=== PATIENT | female | born 2000 ===

== ENCOUNTER 2020-08-22 17:25 | Emergency (ER) | payer OTHER, SELFPAY ==
--- NOTE | 2020-08-22 18:33 | ED.FEMALEGU ---
HPI - Female Genitourinary General Chief complaint: Vaginal Bleeding Stated complaint: vaginal bleeding Time Seen by Provider: 08/22/20 18:33 Source: patient Mode of arrival: ambulatory Limitations: no limitations History of Present Illness HPI Narrative: 20-year-old female presents with heavy vaginal bleeding, states that she has been bleeding irregularly since April. She was treated with control which worked for several days and then bleeding resumed. She has been going through tampons and pads approximately 12 per day. she does feel weak, tired and had a syncopal episode earlier today. She has not been seen by OBGYN, she has been treated by [facility]. this bleeding is accompanied with lower abdominal pain and cramping. She does not report chest pain or pressure, shortness breath, abdominal distention, dysuria, hematuria, fevers, chills, and edema. MD elicited complaint: vaginal bleeding and pelvic pain Onset (ago): week(s) Location of symptoms: suprapubic Severity: severe Severity scale (1-10): 8 Quality of pain: cramping Consistency: constant Vaginal bleeding: heavy, dark red, clots, # pads per hour (1) and # pads per day ( 12 regular tampons, 12 pads saturated) Relieving factors: none Associated symptoms: abdominal pain, syncope and nausea Treatment prior to arrival: none Sexual activity: No Patient : No Related Data : 0 Para: 0 Allergies Allergy/AdvReac Type Severity Reaction Status Date / Time No Known Allergies Allergy Unverified 07/18/20 17:59 Review of Systems Review of Systems: Constitutional: No Weight loss, No Fever, No Chills, No Night Sweats, No Fatigue, No Malaise ENT/Mouth: No Hearing loss, No Ear Pain, No Nasal Congestion, No Sinus Pain, No Hoarseness, No sore throat, No Rhinorrhea, No Swallowing Difficulty Eyes: No Eye Pain, No Swelling, No Redness, No Foreign Body, No Discharge, No Vision Changes Cardiovascular: No Chest Pain, No SOB, No Dyspnea on Exertion, No Orthopnea, No Edema, No Palpitations Respiratory: No Cough, No Sputum, No Wheezing, No Smoke Exposure, No Dyspnea Gastrointestinal: No Nausea, No Vomiting, No Diarrhea, No Constipation, No abdominal Pain, No Hematochezia, No Melena Genitourinary: positive irregular and excessive vaginal bleeding, No Dysuria, No Urinary Frequency, No Hematuria, No Urinary Incontinence, No Urgency, No Flank Pain, No Urinary Flow Changes, No Hesitancy Musculoskeletal: No joint pain, No Myalgias, No Joint Swelling Skin: No Skin Lesions, No rash Neuro: positive syncopal episode earlier today, No Weakness, No Numbness, No Paresthesias, No Dizziness, No Headache Psych: No Anxiety/Panic, No Depression, No SI/HI/AH/VH, No Social Issues Heme/Lymph: No Bruising, No Bleeding,No Lymphadenopathy Endocrine: No Polyuria, No Polydipsia, No Temperature Intolerance Yes all other systems are reviewed and are negative [facility] Past Medical History Medical History No known health problems : 0 Para: 0 Social History Social History Alcohol intake: never Smoking Status: Never smoker Use of substances other than those prescribed or required for medical reasons: No Advance Directives: No Advance Directives Information Provided: No Physical Exam Vital Signs: Vital Signs: Vital Signs Temp Pulse Resp BP Pulse Ox 08/22/20 20:00 98.2 F 82 16 131/82 99 08/22/20 18:40 98.1 F 98 16 139/79 98 08/22/20 18:35 98.1 F 98 16 139/79 98 Body Mass Index 43.2 Appearance: Alert. Oriented X3. No acute distress. Head: Normal external exam. Normocephalic. Atraumatic. No Perdomo signs noted. No raccoon eyes noted Eyes: PERRLA. EOMI. Conjunctiva and sclera normal. Eyelids normal. ENT: TM's Normal. Pharynx normal. Uvula midline. Moist mucous membranes. No trismus noted. No drooling noted. No muffled voice noted. Neck: Normal inspection. Neck supple. No adenopathy. Thyroid Normal. No meningeal signs. No neck mass noted. CVS: tachycardic with normal rhythm. Heart sound normal. No murmurs noted. Pulses equal to all extremities. Respiratory: No respiratory distress. Painless inspiration. Breath sounds normal. No wheezes/rales/rhonchi noted. Chest nontender. No accessory muscle usage noted or decreased air movement noted. Abdomen: Soft and nontender. Bowel sounds normal in all 4 quadrants. No distention noted. No organomegaly noted. No visible injury noted. Back: No CVA tenderness. Full range of motion noted. Skin: Skin warm and dry. Normal skin color. Normal skin turgor. No rashes/lesions/lacerations noted. Extremities: No lower extremity edema. Extremities exhibit normal range of motion. Extremities nontender. Neuro: cranial nerves 2-12 intact, no focal neural deficits, strength 5/5 to all extremities, No motor deficit. No sensory deficit. Reflexes normal. MDM - Female Genitourinary MDM Narrative Medical decision making narrative: uterine fibroid Differential Diagnosis Differential diagnosis: Likely urinary tract infection, cervicitis, ovarian cyst, ruptured ovarian cyst and dysmenorrhea Medical Records Attestation: I reviewed the patient's medical records. Lab Data Attestation: I reviewed the patient's lab results. Result diagrams: 08/22/20 18:57 08/22/20 18:57 Labs: Lab Results 08/22/20 08/22/20 08/22/20 Range/Units 18:57 18:57 18:57 WBC 9.7 (4.8-10.8) X10*3/uL RBC 5.06 (4.20-5.50) X10*6/uL Hgb 13.3 (12.0-16.0) g/dl Hct 41.6 (37-47) % MCV 82.2 (80-98) fL MCH 26.3 L (27.0-33.0) pg MCHC 32.0 (31.0-35.0) g/dl RDW 13.5 (11.0-16.0) % Plt Count 447 H (160-400) X10*3/uL MPV 9.1 L (9.4-12.3) fL Immature Gran % (Auto) 0.3 (0.0-0.4) % Neut % (Auto) 62.2 (45-73) % Lymph % (Auto) 29.8 (20-40) % [place] % (Auto) 6.2 (2-11) % Eos % (Auto) 1.0 (0-4) % Baso % (Auto) 0.5 (0-2) % Lymph # (Auto) 2.9 (1.2-4.9) X10*3/uL [place] # (Auto) 0.6 (0.1-1.2) X10*3/uL Eos # (Auto) 0.1 (0.0-0.4) X10*3/uL Baso # (Auto) 0.1 (0.0-0.2) X10*3/uL Abs Immat Gran (auto) 0.03 (0.00-0.03) X10*3/uL Absolute Neuts (auto) 6.1 (2.0-8.3) X10*3/uL Absolute Nucleated RBC 0.000 (0.0-0.012) X10*3/uL Nucleated RBC % (auto) 0.0 (0.0-0.2) /100WBC PT 13.1 H (10.8-13.0) SEC INR 1.1 (0.9-1.1) APTT 39.9 H (24.1-38.0) SEC Sodium 137 (135-145) mmol/L Potassium 3.8 (3.3-5.1) mmol/l Chloride 106 (96-108) mmol/L Carbon Dioxide 22 (22-29) mmol/L Anion Gap 13 (12-20) BUN 8 L (9-16) mg/dL Creatinine 0.64 (0.5-1.4) mg/dL Estim Creat Clear Calc 178.6 Estimated GFR > 60 Random Glucose 90 (60-115) mg/dL Calcium 9.0 (8.4-10.2) mg/dL Troponin I High Sens (<3.5-17.0) ng/L Urine Color Urine Appearance Urine pH (5.0-8.0) Ur Specific [place] (1.005-1.025) Urine Protein (NEG-TRACE) MG/DL Urine Glucose (UA) (NEG) MG/DL Urine Ketones (NEG) MG/DL Urine Blood (NEG) Urine Nitrite (NEG) Ur Leukocyte Esterase (NEG) Urine RBC (0) /HPF Urine WBC (0-4) /HPF Ur Squamous Epith Cells /LPF Urine Bacteria /LPF Urine Mucus /LPF Urine Test (NEGATIVE) Blood Type Antibody Screen 08/22/20 08/22/20 08/22/20 Range/Units 18:57 18:57 19:15 WBC (4.8-10.8) X10*3/uL RBC (4.20-5.50) X10*6/uL Hgb (12.0-16.0) g/dl Hct (37-47) % MCV (80-98) fL MCH (27.0-33.0) pg MCHC (31.0-35.0) g/dl RDW (11.0-16.0) % Plt Count (160-400) X10*3/uL MPV (9.4-12.3) fL Immature Gran % (Auto) (0.0-0.4) % Neut % (Auto) (45-73) % Lymph % (Auto) (20-40) % [place] % (Auto) (2-11) % Eos % (Auto) (0-4) % Baso % (Auto) (0-2) % Lymph # (Auto) (1.2-4.9) X10*3/uL [place] # (Auto) (0.1-1.2) X10*3/uL Eos # (Auto) (0.0-0.4) X10*3/uL Baso # (Auto) (0.0-0.2) X10*3/uL Abs Immat Gran (auto) (0.00-0.03) X10*3/uL Absolute Neuts (auto) (2.0-8.3) X10*3/uL Absolute Nucleated RBC (0.0-0.012) X10*3/uL Nucleated RBC % (auto) (0.0-0.2) /100WBC PT (10.8-13.0) SEC INR (0.9-1.1) APTT (24.1-38.0) SEC Sodium (135-145) mmol/L Potassium (3.3-5.1) mmol/l Chloride (96-108) mmol/L Carbon Dioxide (22-29) mmol/L Anion Gap (12-20) BUN (9-16) mg/dL Creatinine (0.5-1.4) mg/dL Estim Creat Clear Calc Estimated GFR Random Glucose (60-115) mg/dL Calcium (8.4-10.2) mg/dL Troponin I High Sens < 3.5 (<3.5-17.0) ng/L Urine Color YELLOW Urine Appearance CLEAR Urine pH 6.0 (5.0-8.0) Ur Specific [place] >= 1.030 H (1.005-1.025) Urine Protein NEG (NEG-TRACE) MG/DL Urine Glucose (UA) NEG (NEG) MG/DL Urine Ketones NEG (NEG) MG/DL Urine Blood 1+ H (NEG) Urine Nitrite NEG (NEG) Ur Leukocyte Esterase NEG (NEG) Urine RBC 1-4 (0) /HPF Urine WBC 1-4 (0-4) /HPF Ur Squamous Epith Cells 1+ /LPF Urine Bacteria 1+ /LPF Urine Mucus 2+ /LPF Urine Test NEGATIVE (NEGATIVE) Blood Type O Positive Antibody Screen NEGATIVE Imaging Data Pelvic ultrasound: Attestation: I personally reviewed and interpreted this imaging study as follows: Radiologist's impression: FINDINGS: The uterus is of normal size and echogenicity measuring 8.0 x 3.0 x 4.2 cm. A regular homogeneous endometrium is identified measuring 1.3 cm. A normal right ovary is identified. It measures 2.4 x 2.0 x 2.4 cm for a volume of 6.0 cc. The left ovary is not identified. Normal arterial and venous blood flow is present bilaterally. There is no pelvic free fluid. US/US pelvic complete IMPRESSION: Left ovary not identified; otherwise, unremarkable pelvic ultrasound. ECG Data Attestation: I personally reviewed and interpreted this ECG as follows: ECG interpretation date: 08/22/20 ECG interpretation time: 19:04 Prior ECG tracings: not available for review Interpretation: Vent. Rate : 095 BPM Atrial Rate : 095 BPM P-R Int : 168 ms QRS Dur : 076 ms QT Int : 350 ms P-R-T Axes : 067 043 028 degrees QTc Int : 439 ms Normal sinus rhythm Normal ECG No previous ECGs available Discharge Plan Discharge Clinical Impression: Vaginal bleeding Patient Disposition: Home, Self-Care Instructions: Dysfunctional Uterine Bleeding (ED) Additional Instructions: you were evaluated for menorrhagia, which is abnormal uterine bleeding. Please follow-up with OBGYN, we referred you to Dr. Yang. please call and Ask for an appointment for evaluation. Your pelvic ultrasound was normal, your lab values were within normal limits and not requiring emergent intervention. Thank you for choosing this emergency department for evaluation. Please follow-up with primary care physician as needed. Return to the emergency department for any new, concerning, or worsening symptoms. Referrals: Buddy Yang MD [Physician] - 2 days ( abnormal vaginal bleeding) Interventions: ED Discharge Assessment Last Done: 08/22/20 20:50 Discharge Date/Time: 08/22/20 20:51
[2020-08-22 18:35] VITALS: BP 139/79; PULSE 98; RESP 16; TEMP 36.7; O2SAT 98; BMI 43.2
[2020-08-22 18:40] VITALS: BP 139/79; PULSE 98; RESP 16; TEMP 36.7; O2SAT 98
--- NOTE | 2020-08-22 18:41 | ECG_ITS ---
Test Reason : DIZZY Blood Pressure : / mmHG Vent. Rate : 095 BPM Atrial Rate : 095 BPM P-R Int : 168 ms QRS Dur : 076 ms QT Int : 350 ms P-R-T Axes : 067 043 028 degrees QTc Int : 439 ms Normal sinus rhythm Normal ECG No previous ECGs available Referred By: Edita Villareal Electronically Signed By:ROSANGELA KUNZ MD
--- NOTE | 2020-08-22 18:44 | US_ITS ---
EXAMINATIONS: ULTRASOUND PELVIC, COMPLETE AND DOPPLER INTERROGATION CLINICAL INFORMATION: Abnormal vaginal bleeding. COMPARISON: None. TECHNIQUE: Transabdominal and transvaginal imaging was performed. Transvaginal imaging was performed for further evaluation of the endometrium and adnexa. Doppler interrogation spectral analysis was performed. FINDINGS: The uterus is of normal size and echogenicity measuring 8.0 x 3.0 x 4.2 cm. A regular homogeneous endometrium is identified measuring 1.3 cm. A normal right ovary is identified. It measures 2.4 x 2.0 x 2.4 cm for a volume of 6.0 cc. The left ovary is not identified. Normal arterial and venous blood flow is present bilaterally. There is no pelvic free fluid. US/US pelvic complete IMPRESSION: Left ovary not identified; otherwise, unremarkable pelvic ultrasound.
--- NOTE | 2020-08-22 18:44 | US_ITS ---
EXAMINATIONS: ULTRASOUND PELVIC, COMPLETE AND DOPPLER INTERROGATION CLINICAL INFORMATION: Abnormal vaginal bleeding. COMPARISON: None. TECHNIQUE: Transabdominal and transvaginal imaging was performed. Transvaginal imaging was performed for further evaluation of the endometrium and adnexa. Doppler interrogation spectral analysis was performed. FINDINGS: The uterus is of normal size and echogenicity measuring 8.0 x 3.0 x 4.2 cm. A regular homogeneous endometrium is identified measuring 1.3 cm. A normal right ovary is identified. It measures 2.4 x 2.0 x 2.4 cm for a volume of 6.0 cc. The left ovary is not identified. Normal arterial and venous blood flow is present bilaterally. There is no pelvic free fluid. US/US transvaginal IMPRESSION: Left ovary not identified; otherwise, unremarkable pelvic ultrasound.
[2020-08-22 19:04] LABS: Basophils Absolute Auto 0.1 X10*3/uL (0.0-0.2); Basophils Percent Auto 0.5 % (0-2); Eosinophils Absolute Auto 0.1 X10*3/uL (0.0-0.4); Hematocrit 41.6 % (37-47); Hemoglobin 13.3 g/dl (12.0-16.0); Imm Gran Abs Auto 0.03 X10*3/uL (0.00-0.03); Imm Gran Pct Auto 0.3 % (0.0-0.4); Lymphocytes Absolute Auto 2.9 X10*3/uL (1.2-4.9); Lymphocytes Percent Auto 29.8 % (20-40); MANUAL DIFF FLAG NO; Mean Corpuscular Hemoglobin 26.3 pg (27.0-33.0); Mean Corpuscular Volume 82.2 fL (80-98); Mean Platelet Volume 9.1 fL (9.4-12.3); Monocytes Absolute Auto 0.6 X10*3/uL (0.1-1.2); Monocytes Percent Auto 6.2 % (2-11); Neutrophils Absolute Auto 6.1 X10*3/uL (2.0-8.3); Neutrophils Percent Auto 62.2 % (45-73); Platelet Count 447 X10*3/uL (160-400); Red Blood Count 5.06 X10*6/uL (4.20-5.50); Red Cell Distribution Width 13.5 % (11.0-16.0); White Blood Count 9.7 X10*3/uL (4.8-10.8)
[2020-08-22 19:11] LABS: Glucose Urine UA NEG (NEG); Leukocyte Esterase Urine NEG (NEG); Nitrite Urine NEG (NEG); Specific Gravity - Urine >= 1.030 (1.005-1.025); Urine Blood 1+ (NEG); Urine Ketones NEG (NEG); Urine Protein NEG (NEG-TRACE)
[2020-08-22 19:13] LABS: Appearance Urine CLEAR; Color Urine YELLOW
[2020-08-22 19:14] LABS: INTERNATIONAL NORM RATIO 1.1 (0.9-1.1); Prothrombin Time 13.1 SEC (10.8-13.0)
[2020-08-22 19:17] LABS: Partial Thromboplastin Time 39.9 SEC (24.1-38.0); UPreg QC Valid YES; Urine Pregnancy NEGATIVE (NEGATIVE)
[2020-08-22 19:21] LABS: Bacteria Urine 1+ /LPF; Squamous Epithelial Cell Urine 1+ /LPF
[2020-08-22 19:22] LABS: Anion Gap 13 (12-20); Blood Urea Nitrogen 8 mg/dL (9-16); Carbon Dioxide 22 mmol/L (22-29); Chloride 106 mmol/L (96-108); Creatinine Clr Calc Pharmacy 178.6; Estimated Glomerular Filt Rate > 60; Glucose Random 90 mg/dL (60-115); Mucus Urine 2+ /LPF; Potassium 3.8 mmol/l (3.3-5.1); Sodium 137 mmol/L (135-145)
[2020-08-22 19:27] LABS: Troponin-I High Sensitivity < 3.5 ng/L (<3.5-17.0)
[2020-08-22 20:00] VITALS: BP 131/82; PULSE 82; RESP 16; TEMP 36.8; O2SAT 99
[2020-08-22] MEDS: Ketorolac Tromethamine 30 MG/ML VIAL IV (20:05)
[2020-08-22] MEDS: 0.9 % Sodium Chloride 1,000 ML 999 ML IVCONT (20:05)
[2020-08-22] MEDS: ondansetron HCL 4 MG/2 ML VIAL IVPUSH (20:06)
== END 2020-08-22 20:51 | disposition home or self-care (01) ==
PROVIDERS: Nurse Practitioner Family; Emergency Provider Emergency Medicine
DX: N93.9 Abnormal uterine and vaginal bleeding, unspecified (principal)
CPT/HCPCS: 36415; 76830; 76856; 80048; 81001; 81025; 84484; 85025; 85610; 85730; 86850; 86900; 86901; 93005; 99284; J1885; J2405

== ENCOUNTER 2020-11-27 21:09 | Emergency (ER) | payer OTHER, SELFPAY ==
[2020-11-27 22:54] VITALS: BP 133/89; PULSE 88; RESP 18; TEMP 36.8; O2SAT 98; BMI 43.7
--- NOTE | 2020-11-27 23:18 | ED_ITS ---
HPI - Female Genitourinary General Chief complaint: Urogenital-Female Stated complaint: right side pain Time Seen by Provider: 11/27/20 22:43 Source: patient Mode of arrival: ambulatory Limitations: no limitations History of Present Illness HPI Narrative: Patient comes emergency room complaining of right lower quadrant pain. Patient states she has for lower back pain as well. Patient has no history of kidney stones. Patient also complaining of burning with urination. Patient denies fever chills. Patient has been evaluated before for vaginal bleeding and vaginal discomfort, patient states she went to see her OBGYN after her visit in the ER on August 2020, patient states that she was told that everything is normal Related Data Previous Rx's Medication Instructions Recorded ketorolac 10 mg PO TID PRN 5 Days #12 tab 11/28/20 ondansetron HCl [Zofran] 4 mg PO Q8H PRN #10 tab 11/28/20 prednisone 20 mg PO DAILY #3 tab 11/28/20 tamsulosin 0.4 mg PO DAILY #4 cap 11/28/20 Allergies Allergy/AdvReac Type Severity Reaction Status Date / Time No Known Allergies Allergy Unverified 07/18/20 17:59 Review of Systems Review of Systems: Constitutional : No Weight loss, No Fever, No Chills, No Night Sweats, No Fatigue, No Malaise ENT/Mouth : No Hearing loss, No Ear Pain, No Nasal Congestion, No Sinus Pain, No Hoarseness, No sore throat, No Rhinorrhea, No Swallowing Difficulty Eyes: No Eye Pain, No Swelling, No Redness, No Foreign Body, No Discharge, No Vision Changes Cardiovascular : No Chest Pain, No SOB, No Dyspnea on Exertion, No Orthopnea, No Edema, No Palpitations Respiratory : No Cough, No Sputum, No Wheezing, No Smoke Exposure, No Dyspnea Gastrointestinal : No Nausea, No Vomiting, No Diarrhea, No Constipation, of right lower quadrant pain, No Hematochezia, No Melena Genitourinary : no irregular bleeding, No Dysuria, No Urinary Frequency, No Hematuria, No Urinary Incontinence, No Urgency, No Flank Pain, No Urinary Flow Changes, No Hesitancy Musculoskeletal : No joint pain, No Myalgias, No Joint Swelling, complaining of right sided back pain lower side, no CVA tenderness Skin : No Skin Lesions, No rash Neuro : No Weakness, No Numbness, No Paresthesias, No Loss of Consciousness, No Dizziness, No Headache Psych : No Anxiety/Panic, No Depression, No SI/HI/AH/VH, No Social Issues, Heme/Lymph: No Bruising, No Bleeding,No Lymphadenopathy Endocrine : No Polyuria, No Polydipsia, No Temperature Intolerance [facility] Past Medical History Medical History No known health problems Social History Social History Alcohol intake: never Smoking Status: Never smoker Advance Directives: No Physical Exam Vital Signs: Vital Signs: Last Vital Signs Temp 98.3 F 11/27/20 22:54 Pulse 88 11/27/20 22:54 Resp 18 11/27/20 22:54 BP 133/89 11/27/20 22:54 Pulse Ox 98 11/27/20 22:54 Body Mass Index 43.7 Appearance: Alert. Oriented X3. No acute distress. Playing on her phone Eyes: Pupils equal, round and reactive to light. ENT: Pharynx normal. Neck: Normal inspection. Neck supple. No lymph nodes noted. No crepitus CVS: Normal heart rate and rhythm. Pulses normal. Normal S1 and S2 Respiratory: No respiratory distress. Breath sounds normal. No Wheezing. No rales Abdomen: Soft , mild right tenderness, No rigidity. No distention. good BS x4 Skin: Skin warm and dry. Normal skin color. Normal skin turgor. Extremities: No lower extremity edema. No lower extremity edema. No Lacerations. No Rash Neuro: Oriented X 3. No motor deficit. No sensory deficit. Moving all extermities. No slurred speech. Course Course Course Narrative: I discussed the CT scan and labs with the patient, she has a 2 mm stone at the right UVJ. Is very likely that she will pass the stone. Patient was given a 1st dose of Toradol, prednisone, tamsulosin. MDM - Female Genitourinary Lab Data Result diagrams: 11/27/20 23:48 11/27/20 23:48 Labs: Lab Results 11/27/20 11/27/20 11/27/20 Range/Units 23:48 23:48 23:48 WBC 9.4 (4.8-10.8) X10*3/uL RBC 4.67 (4.20-5.50) X10*6/uL Hgb 11.9 L (12.0-16.0) g/dl Hct 37.6 (37-47) % MCV 80.5 (80-98) fL MCH 25.5 L (27.0-33.0) pg MCHC 31.6 (31.0-35.0) g/dl RDW 13.4 (11.0-16.0) % Plt Count 388 (160-400) X10*3/uL MPV 9.1 L (9.4-12.3) fL Immature Gran % (Auto) 0.2 (0.0-0.4) % Neut % (Auto) 68.6 (45-73) % Lymph % (Auto) 23.2 (20-40) % [place] % (Auto) 7.4 (2-11) % Eos % (Auto) 0.3 (0-4) % Baso % (Auto) 0.3 (0-2) % Lymph # (Auto) 2.2 (1.2-4.9) X10*3/uL [place] # (Auto) 0.7 (0.1-1.2) X10*3/uL Eos # (Auto) 0.0 (0.0-0.4) X10*3/uL Baso # (Auto) 0.0 (0.0-0.2) X10*3/uL Abs Immat Gran (auto) 0.02 (0.00-0.03) X10*3/uL Absolute Neuts (auto) 6.4 (2.0-8.3) X10*3/uL Absolute Nucleated RBC 0.000 (0.0-0.012) X10*3/uL Nucleated RBC % (auto) 0.0 (0.0-0.2) /100WBC Sodium 137 (135-145) mmol/L Potassium 3.8 (3.3-5.1) mmol/l Chloride 107 (96-108) mmol/L Carbon Dioxide 23 (22-29) mmol/L Anion Gap 11 L (12-20) BUN 12 (9-16) mg/dL Creatinine 0.63 (0.5-1.4) mg/dL Estim Creat Clear Calc 182.7 Estimated GFR > 60 Random Glucose 98 (60-115) mg/dL Calcium 8.9 (8.4-10.2) mg/dL Urine Color YELLOW Urine Appearance CLEAR Urine pH 6.0 (5.0-8.0) Ur Specific [place] 1.025 (1.005-1.025) Urine Protein NEG (NEG-TRACE) MG/DL Urine Glucose (UA) NEG (NEG) MG/DL Urine Ketones NEG (NEG) MG/DL Urine Blood 1+ H (NEG) Urine Nitrite NEG (NEG) Ur Leukocyte Esterase NEG (NEG) Urine RBC 1-4 (0) /HPF Urine WBC 1-4 (0-4) /HPF Ur Squamous Epith Cells 1+ /LPF Urine Bacteria 1+ /LPF Urine Mucus 2+ /LPF Urine Test NEGATIVE (NEGATIVE) Imaging Data CT scan - abdomen: Radiologist's impression: FINDINGS: LUNG BASES: The visualized lung bases are unremarkable. LIVER, GALLBLADDER, AND BILIARY TREE: The liver is normal in size, shape, and attenuation. No focal hepatic lesion or biliary ductal dilatation is present. The gallbladder is unremarkable with no evidence of radiopaque gallstones, gallbladder wall thickening, or obvious pericholecystic inflammatory changes. PANCREAS: Unremarkable. SPLEEN: Unremarkable. ADRENAL GLANDS: Unremarkable. KIDNEYS AND URETERS: There is a 2 mm calculus at the right ureterovesicular junction without significant hydronephrosis. No left hydronephrosis. Bilateral nephrograms appear symmetric. Tiny renal cysts suspected bilaterally. BLADDER: Unremarkable. GASTROINTESTINAL TRACT: The small and large bowel are unremarkable. The appendix is unremarkable. No free fluid or free air is seen. ABDOMINAL WALL: No significant hernia is appreciated. LYMPH NODES: Normal. VASCULAR: Unremarkable. PELVIC VISCERA: Unremarkable. OSSEOUS STRUCTURES: Unremarkable. CT/CT abdomen pelvis w con IMPRESSION: Right ureterovesicular junction calculus measuring 2 mm without significant hydronephrosis. Discharge Plan Discharge Clinical Impression: Ureterolithiasis Patient Disposition: Home, Self-Care Instructions: Kidney Stones (ED) Additional Instructions: Please follow-up with your primary care physician tomorrow. If you have any worsening or new symptoms, please return to the emergency room or call 911 Prescriptions: New ketorolac 10 mg tablet 10 mg PO TID PRN (Reason: pain) 5 Days Qty: 12 RF: 0 prednisone 20 mg tablet 20 mg PO DAILY Qty: 3 RF: 0 tamsulosin 0.4 mg capsule 0.4 mg PO DAILY Qty: 4 RF: 0 ondansetron HCl [Zofran] 4 mg tablet 4 mg PO Q8H PRN (Reason: nausea and vomiting) Qty: 10 RF: 0 Referrals: Barber Mccallum III, MD [Physician] - 2 days
[2020-11-27 23:59] LABS: MANUAL DIFF FLAG NO
--- NOTE | 2020-11-28 | CT_ITS ---
EXAMINATION: CT ABDOMEN AND PELVIS WITH CONTRAST CLINICAL INFORMATION: Right lower quadrant pain COMPARISON: 02/27/2020 TECHNIQUE: Multidetector volumetric images were obtained from the superior aspect of the liver through the pubic symphysis following administration 85 mL of Omnipaque 350 intravenous contrast. Sagittal and coronal reformatted images were obtained on the technologist's workstation. Oral contrast: No This CT examination was performed using dose optimization techniques as appropriate, variously including the following: *Automated exposure control *Adjustment of mA and/or kV according to patient size (this includes techniques or standardized protocols for targeted exams where dose is matched to indication/reason for exam; i.e. extremities or head) *Use of iterative reconstruction technique DLP: 966 mGy-cm FINDINGS: LUNG BASES: The visualized lung bases are unremarkable. LIVER, GALLBLADDER, AND BILIARY TREE: The liver is normal in size, shape, and attenuation. No focal hepatic lesion or biliary ductal dilatation is present. The gallbladder is unremarkable with no evidence of radiopaque gallstones, gallbladder wall thickening, or obvious pericholecystic inflammatory changes. PANCREAS: Unremarkable. SPLEEN: Unremarkable. ADRENAL GLANDS: Unremarkable. KIDNEYS AND URETERS: There is a 2 mm calculus at the right ureterovesicular junction without significant hydronephrosis. No left hydronephrosis. Bilateral nephrograms appear symmetric. Tiny renal cysts suspected bilaterally. BLADDER: Unremarkable. GASTROINTESTINAL TRACT: The small and large bowel are unremarkable. The appendix is unremarkable. No free fluid or free air is seen. ABDOMINAL WALL: No significant hernia is appreciated. LYMPH NODES: Normal. VASCULAR: Unremarkable. PELVIC VISCERA: Unremarkable. OSSEOUS STRUCTURES: Unremarkable. CT/CT abdomen pelvis w con IMPRESSION: Right ureterovesicular junction calculus measuring 2 mm without significant hydronephrosis.
[2020-11-28 00:01] LABS: Basophils Percent Auto 0.3 % (0-2); Eosinophils Percent Auto 0.3 % (0-4); Hematocrit 37.6 % (37-47); Hemoglobin 11.9 g/dl (12.0-16.0); Imm Gran Abs Auto 0.02 X10*3/uL (0.00-0.03); Imm Gran Pct Auto 0.2 % (0.0-0.4); Lymphocytes Absolute Auto 2.2 X10*3/uL (1.2-4.9); Lymphocytes Percent Auto 23.2 % (20-40); Mean Corpuscular HGB Conc 31.6 g/dl (31.0-35.0); Mean Corpuscular Hemoglobin 25.5 pg (27.0-33.0); Mean Corpuscular Volume 80.5 fL (80-98); Mean Platelet Volume 9.1 fL (9.4-12.3); Monocytes Absolute Auto 0.7 X10*3/uL (0.1-1.2); Monocytes Percent Auto 7.4 % (2-11); Neutrophils Absolute Auto 6.4 X10*3/uL (2.0-8.3); Neutrophils Percent Auto 68.6 % (45-73); Platelet Count 388 X10*3/uL (160-400); Red Blood Count 4.67 X10*6/uL (4.20-5.50); Red Cell Distribution Width 13.4 % (11.0-16.0); White Blood Count 9.4 X10*3/uL (4.8-10.8)
[2020-11-28 00:09] LABS: Glucose Urine UA NEG (NEG); Leukocyte Esterase Urine NEG (NEG); Nitrite Urine NEG (NEG); Specific Gravity - Urine 1.025 (1.005-1.025); Urine Blood 1+ (NEG); Urine Ketones NEG (NEG); Urine Protein NEG (NEG-TRACE)
[2020-11-28] MEDS: Ketorolac Tromethamine 30 MG/ML VIAL IVPUSH (00:10)
[2020-11-28 00:12] LABS: Appearance Urine CLEAR; Color Urine YELLOW; UPreg QC Valid YES; Urine Pregnancy NEGATIVE (NEGATIVE)
[2020-11-28 00:21] LABS: Bacteria Urine 1+ /LPF; Mucus Urine 2+ /LPF; Squamous Epithelial Cell Urine 1+ /LPF
[2020-11-28 00:22] LABS: Anion Gap 11 (12-20); Blood Urea Nitrogen 12 mg/dL (9-16); Calcium 8.9 mg/dL (8.4-10.2); Carbon Dioxide 23 mmol/L (22-29); Chloride 107 mmol/L (96-108); Creatinine Clr Calc Pharmacy 182.7; Estimated Glomerular Filt Rate > 60; Glucose Random 98 mg/dL (60-115); Potassium 3.8 mmol/l (3.3-5.1); Sodium 137 mmol/L (135-145)
[2020-11-28] MEDS: iohexoL 350 MG/ML 100 ML INFUS..BTL 85 ML IV (01:20)
[2020-11-28] MEDS: predniSONE 20 MG TABLET PO (02:27)
[2020-11-28] MEDS: Tamsulosin HCL 0.4 MG CAPSULE PO (02:27)
== END 2020-11-28 02:43 | disposition home or self-care (01) ==
PROVIDERS: Emergency Provider Emergency Medicine
DX: N20.1 Calculus of ureter (principal); R10.31 Right lower quadrant pain; Z79.899 Other long term (current) drug therapy
CPT/HCPCS: 36415; 74177; 80048; 81001; 81003; 81025; 85025; 96374; 99284; J1885; Q9967

== ENCOUNTER 2021-07-22 12:26 | Emergency (ER) | payer OTHER, SELFPAY ==
--- NOTE | ~2021-07-22 | CT_ITS ---
EXAMINATION: CT ABDOMEN AND PELVIS WITHOUT CONTRAST CLINICAL INFORMATION: Right lower back pain. Rule out kidney stone. COMPARISON: Previous CT of the abdomen and pelvis November 2020 TECHNIQUE: Multidetector volumetric imaging was performed from the superior aspect of the liver through the pubic symphysis. Sagittal and coronal reformatted images were obtained on the technologist's workstation. This CT examination was performed using dose optimization techniques as appropriate, variously including the following: *Automated exposure control *Adjustment of mA and/or kV according to patient size (this includes techniques or standardized protocols for targeted exams where dose is matched to indication/reason for exam; i.e. extremities or head) *Use of iterative reconstruction technique DLP: 1306 mGy-cm FINDINGS: LUNG BASES: The visualized lung bases are unremarkable. LIVER, GALLBLADDER, AND BILIARY TREE: The liver is normal in size, shape, and attenuation. No focal hepatic lesion or biliary ductal dilatation is present. The gallbladder is unremarkable with no evidence of radiopaque gallstones, gallbladder wall thickening, or obvious pericholecystic inflammatory changes. PANCREAS: Unremarkable. SPLEEN: Unremarkable. ADRENAL GLANDS: Unremarkable. KIDNEYS AND URETERS: The kidneys are normal in size, shape, and attenuation. No hydronephrosis, hydroureter, or calculi seen. No perinephric stranding. BLADDER: Unremarkable. GASTROINTESTINAL TRACT: The small and large bowel are unremarkable. The appendix is unremarkable. ABDOMINAL WALL: There is a small umbilical hernia containing fat. LYMPH NODES: Normal. VASCULAR: Unremarkable. PELVIC VISCERA: Unremarkable. OSSEOUS STRUCTURES: Unremarkable. CT/CT abdomen pelvis wo con IMPRESSION: Unremarkable exam. No stone seen.
[2021-07-22 12:38] VITALS: BP 126/74; PULSE 102; RESP 18; TEMP 36.8; O2SAT 98; BMI 43.2
--- NOTE | 2021-07-22 13:46 | ED_ITS ---
HPI - Back Pain/Injury General Chief Complaint: Back Pain/Injury Stated Complaint: back pain Time Seen by Provider: 07/22/21 13:46 Source: patient Mode of arrival: ambulatory Limitations: no limitations History of Present Illness HPI Narrative: This is a 20-year-old female that presents to the emergency department with 2 days of right lower back pain, at times radiating down her right leg to her knee. She states that the pain is worse with movement, and worse with walking. The pain a is constant in nature. states the pain started 2 days ago when she woke up, she denies any heavy lifting, or trauma to the a karan. She states that this happened her before, last time it was a kidney stone. She states the pain is 10 and 10, and intermittent. She denies any trauma to the area. She denies any urinary symptoms. She denies fevers, chills, shortness of breath, urinary frequency, urinary urgency, chest pain, malaise, fatigue. MD elicited complaint: back pain (left sided ) Pertinent past history: prior back pain and kidney stones Onset (ago): day(s) (2) Timing: constant Severity: moderate Similar Symptoms Previously: Yes Quality: sharp Location: lumbar spine and right lower back Radiation: right upper leg Exacerbating factors: movement and walking Relieving factors: none Associated symptoms: denies other symptoms Work related injury: No Related Data Previous Rx's Medication Instructions Recorded ketorolac 10 mg tablet 10 mg PO TID PRN 5 Days #12 tab 11/28/20 ondansetron HCl 4 mg tablet 4 mg PO Q8H PRN #10 tab 11/28/20 (Zofran) prednisone 20 mg tablet 20 mg PO DAILY #3 tab 11/28/20 tamsulosin 0.4 mg capsule 0.4 mg PO DAILY #4 cap 11/28/20 acetaminophen 500 mg tablet 500 mg PO Q6H PRN #14 tab 07/22/21 (Tylenol Extra Strength) cyclobenzaprine 10 mg tablet 10 mg PO Q8H #10 tab 07/22/21 Allergies Allergy/AdvReac Type Severity Reaction Status Date / Time No Known Allergies Allergy Unverified 07/18/20 17:59 Review of Systems Review of Systems: Constitutional : No trauma, No Weight loss, No Fever, No Chills, ENT/Mouth : No Hearing loss, No Ear Pain, No Nasal Congestion, No Sinus Pain, No Hoarseness, No sore throat, No Rhinorrhea, No Swallowing Difficulty Cardiovascular : No Chest Pain, No SOB Respiratory : No Cough, No Dyspnea Gastrointestinal : No Nausea, No Vomiting, No Diarrhea, No abdominal Pain, No Hematochezia, No Melena Genitourinary : No Dysuria, No Urinary Frequency, No Hematuria, No Urinary or Bowel Incontinence/retention Musculoskeletal : + Back pain, No neck pain, No joint stiffness, No joint swelling Skin : No Skin Lesions, No rash or signs of infection Neuro : No Weakness, + radiation down right leg to knee, No Numbness, No Paresthesias, No headache, no loss of bowel or bladder incontinence, no saddle anesthesia, Focal weakness, No radiation Denies history of IV drug usage. Yes all other systems are reviewed and are negative [facility] Past Medical History Attestation statement: The following information was validated with the patient. Source: old records reviewed Medical History No known health problems Social History Social History Alcohol intake: never Advance Directives: No Advance Directives Information Provided: No Patient : No Physical Exam Vital Signs: Vital Signs: Last Vital Signs Temp 97.2 F 07/22/21 15:47 Pulse 86 07/22/21 15:47 Resp 16 07/22/21 15:47 BP 107/63 07/22/21 15:47 Pulse Ox 97 07/22/21 15:47 Body Mass Index 43.2 vital signs have been reviewed as normal and appeared to be correct. Blood pressure normal. Heart rate tachycardic at 102. Respiration rate normal. Temperature normal. Oxygen saturation normal. Appearance: Alert. Oriented X3. No acute distress. Head: Normal external exam. Normocephalic. Atraumatic. Eyes: PERRLA. EOMI. Conjunctiva and sclera normal. Eyelids normal. ENT: Pharynx normal. Uvula midline. Moist mucous membranes. Neck: Normal inspection. Neck supple. FROM. No adenopathy. No meningeal signs. CVS: Normal heart rate and rhythm. Heart sound normal. No murmurs noted. Pulses normal throughout. Respiratory: No respiratory distress. Painless inspiration. Breath sounds normal. No wheezes/rales/rhonchi noted. Chest nontender. No accessory muscle usage noted or decreased air movement noted. Abdomen: Soft and nontender. Bowel sounds normal in all 4 quadrants. No distention noted. No organomegaly noted. No visible injury noted. Back: No CVA tenderness. +Full/painfull range of motion noted. No obvious deformities, or edema. + Mild para-spinal muscular tenderness from lumbar region to coccyx. + Full/painful ROM in back and lower extremities. 5/5 strength hip extension/flexion, abduction, adduction. + Mild Lumbar pain with hip flexion against resistance. + Straight leg raise test positive on right; Straight leg raise test negative on left; Reflexes normal ankle and knee bilaterally; EHL motor strength normal bilaterally. No rashes/lesion/induration/fluctuance or signs infection noted. Skin: Skin warm and dry. Normal skin color. Normal skin turgor. No rashes/lesions/lacerations noted. Extremities: No lower extremity edema. No calf tenderness is noted. Extremities exhibit normal range of motion. Extremities nontender. Neuro: Oriented X 3. No motor deficit. No sensory deficit. Reflexes normal. Patient has a normal steady gait. Course Course Course Narrative: This is a 20-year-old female presenting with 2 days of worsening right lower back pain. She states the pain is a 10/10 constant in nature, and radiates down to her right leg, just above the knee. She states that the pain is worse with movement, and better at rest. She denies any urinary symptoms at this time. She denies fevers, chills, chest pain, shortness of breath, recent sick contacts, abdominal pain, headaches, changes in bowel habits, and paresthesias. She does have a history of kidney stones. Physical exam is significant for positive straight leg raise on the right, this patient has full range of motion however there is pain with movement. There is also a tenderness to palpation to the paraspinous muscles in the lumbar and cam cyx region. No evident neurological deficits on exam. Due to patient history, and physical exam findings a CT of the abdomen pelvis without contrast has been ordered as well as a UA, and urine . Will rule out kidney stones, although this is likely sciatica. This is not consistent with epidural abcess or cauda equina. Reevaluation(s) Reevaluation #1: Negative urine clean UA. CT of abdomen and pelvis is normal MDM - Back Pain/Injury Medical Records Attestation: I reviewed the patient's medical records. Lab Data Attestation: I reviewed the patient's lab results. Labs: Lab Results 07/22/21 07/22/21 Range/Units 14:30 14:30 Urine Color YELLOW Urine Appearance CLEAR Urine pH 6.5 (5.0-8.0) Ur Specific [place] 1.025 (1.005-1.025) Urine Protein NEG (NEG-TRACE) MG/DL Urine Glucose (UA) NEG (NEG) MG/DL Urine Ketones NEG (NEG) MG/DL Urine Blood NEG (NEG) Urine Nitrite NEG (NEG) Ur Leukocyte Esterase NEG (NEG) Urine Test NEGATIVE (NEGATIVE) Discharge Plan Discharge Clinical Impression: Strain of lumbar region, Sciatica, Work related injury Patient Disposition: Home, Self-Care Instructions: Sciatica (ED), Back Pain (ED) Additional Instructions: Take medications as prescribed Follow-up with her PCP. Since this was a work related injury you can follow-up with workman's Comp. Return to the emergency department with new, or worsening symptoms. Prescriptions: New cyclobenzaprine 10 mg tablet 10 mg PO Q8H Qty: 10 RF: 0 acetaminophen [Tylenol Extra Strength] 500 mg tablet 500 mg PO Q6H PRN (Reason: pain) Qty: 14 RF: 0 No Action ketorolac 10 mg tablet 10 mg PO TID PRN (Reason: pain) 5 Days Qty: 12 RF: 0 prednisone 20 mg tablet 20 mg PO DAILY Qty: 3 RF: 0 tamsulosin 0.4 mg capsule 0.4 mg PO DAILY Qty: 4 RF: 0 ondansetron HCl [Zofran] 4 mg tablet 4 mg PO Q8H PRN (Reason: nausea and vomiting) Qty: 10 RF: 0 Referrals: Physician,None [Primary Care Provider] - 2 days (your pcp) Stand Alone Forms: Work/School Release Interventions: ED Discharge Assessment Last Done: 07/22/21 16:09 Discharge Date/Time: 07/22/21 16:11
[2021-07-22 14:42] LABS: Appearance Urine CLEAR; Color Urine YELLOW; Glucose Urine UA NEG (NEG); Leukocyte Esterase Urine NEG (NEG); Nitrite Urine NEG (NEG); PH 6.5 (5.0-8.0); Specific Gravity - Urine 1.025 (1.005-1.025); Urine Blood NEG (NEG); Urine Ketones NEG (NEG); Urine Protein NEG (NEG-TRACE)
[2021-07-22 14:43] LABS: UPreg QC Valid YES; Urine Pregnancy NEGATIVE (NEGATIVE)
[2021-07-22 15:47] VITALS: BP 107/63; PULSE 86; RESP 16; TEMP 36.2; O2SAT 97
== END 2021-07-22 16:11 | disposition home or self-care (01) ==
PROVIDERS: Physician Assistant Medical; Emergency Provider Emergency Medicine
DX: M54.41 Lumbago with sciatica, right side (principal); Z79.899 Other long term (current) drug therapy
CPT/HCPCS: 74176; 81003; 81025; 99284

== ENCOUNTER 2022-10-11 13:06 | Emergency (ER) | payer OTHER, SELFPAY ==
--- NOTE | ~2022-10-11 | XR_ITS ---
EXAMINATION: XR CHEST CLINICAL INFORMATION: Cough, chest pain. COMPARISON: 02/27/2020 chest radiograph. TECHNIQUE: 2 views of the chest were obtained. FINDINGS: No significant abnormality is noted involving the heart, lungs, mediastinum, bony thorax or soft tissues. XR/XR chest 2V IMPRESSION: No acute cardiopulmonary process.
--- NOTE | 2022-10-11 14:48 | ED.GENADULT ---
HPI - General Adult General Stated complaint: Chest pain/Cough/Sore throat Related Data Previous Rx's Medication Instructions Recorded ketorolac 10 mg tablet 10 mg PO TID PRN pain 5 days #12 11/28/20 tabs ondansetron HCl 4 mg tablet 4 mg PO Q8H PRN nausea and 11/28/20 (Zofran) vomiting #10 tabs prednisone 20 mg tablet 20 mg PO DAILY #3 tabs 11/28/20 tamsulosin 0.4 mg capsule 0.4 mg PO DAILY #4 caps 11/28/20 acetaminophen 500 mg tablet 500 mg PO Q6H PRN pain #14 tabs 07/22/21 (Tylenol Extra Strength) cyclobenzaprine 10 mg tablet 10 mg PO Q8H Muscle spasm #10 tabs 07/22/21 Allergies Allergy/AdvReac Type Severity Reaction Status Date / Time No Known Allergies Allergy Unverified 07/18/20 17:59 PMFSH Past Medical History Medical History (Updated 03/01/22 @ 16:23 by Lexi Sepulveda MD) Generalized anxiety disorder No known health problems Obesity Social History Social History Alcohol intake: never Course Course Course Narrative: RME - 22 yo female presents to the ER for 2 days of cough, chest tightness, sore throat. Also reports new onset dysuria that started last night. Vomited twice yesterday, no diarrhea or abdominal pain. Negative for COVID at home. Lungs clear on exam, saturating high 90s. She is nontoxic appearing. Will check CXR and viral swabs. Will check UA and Upreg as well. Discharge Plan Discharge Prescriptions: No Action ketorolac 10 mg tablet 10 mg PO TID PRN (Reason: pain) 5 Days Qty: 12 0RF prednisone 20 mg tablet 20 mg PO DAILY Qty: 3 0RF tamsulosin 0.4 mg capsule 0.4 mg PO DAILY Qty: 4 0RF ondansetron HCl [Zofran] 4 mg tablet 4 mg PO Q8H PRN (Reason: nausea and vomiting) Qty: 10 0RF cyclobenzaprine 10 mg tablet 10 mg PO Q8H Qty: 10 0RF acetaminophen [Tylenol Extra Strength] 500 mg tablet 500 mg PO Q6H PRN (Reason: pain) Qty: 14 0RF
[2022-10-11 14:49] VITALS: BP 136/77; PULSE 108; RESP 16; TEMP 36.7; O2SAT 97; BMI 43.2
[2022-10-11 15:59] LABS: Appearance Urine Clear; Color Urine Yellow; Glucose Urine UA Negative (Negative); Leukocyte Esterase Urine Negative (Negative); Nitrite Urine Negative (Negative); Specific Gravity - Urine >= 1.030 (1.005-1.025); Urine Blood Negative (Negative); Urine Ketones Negative (Negative); Urine Protein Trace mg/dL (Neg-Trace)
[2022-10-11 16:01] LABS: Urine Pregnancy NEGATIVE (NEGATIVE)
[2022-10-11 16:02] LABS: UPreg QC Valid YES
[2022-10-11 16:15] LABS: IDNOW Serial# BCCEAD1C; Influenza A Positive (Negative); Influenza B2 Negative (Negative)
[2022-10-11 16:24] LABS: COVID-19 Test Negative (Negative); IDNOW Serial# 16C4AD1C
--- NOTE | 2022-10-11 17:14 | ED.URI ---
HPI - URI/Sore Throat General Chief Complaint: Upper Respiratory Symptoms Stated Complaint: Chest pain/Cough/Sore throat Time Seen by Provider: 10/11/22 16:53 Source: patient Mode of arrival: ambulatory Limitations: no limitations History of Present Illness HPI Narrative: 22-year-old female came in for evaluation of headache, subjective fever, generalized body ache, joint pain, coughing, congestion and sneezing, chest pain with coughing. 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 Related Data Previous Rx's Medication Instructions Recorded ketorolac 10 mg tablet 10 mg PO TID PRN pain 5 days #12 11/28/20 tabs ondansetron HCl 4 mg tablet 4 mg PO Q8H PRN nausea and 11/28/20 (Zofran) vomiting #10 tabs prednisone 20 mg tablet 20 mg PO DAILY #3 tabs 11/28/20 tamsulosin 0.4 mg capsule 0.4 mg PO DAILY #4 caps 11/28/20 acetaminophen 500 mg tablet 500 mg PO Q6H PRN pain #14 tabs 07/22/21 (Tylenol Extra Strength) cyclobenzaprine 10 mg tablet 10 mg PO Q8H Muscle spasm #10 tabs 07/22/21 guaifenesin 100 mg/5 mL oral liquid 200 mg (10 mL) PO Q4H PRN cough 10/11/22 #1,000 mL oseltamivir 75 mg capsule (Tamiflu) 75 mg PO BID 5 days #10 caps 10/11/22 Allergies Allergy/AdvReac Type Severity Reaction Status Date / Time No Known Allergies Allergy Unverified 07/18/20 17:59 Review of Systems Review of Systems: All other systems are reviewed and are negative Constitutional: Reports as per HPI and Reports no additional constitutional complaints Eyes: Reports as per HPI and Reports no additional eye complaints Reports system reviewed and no additional complaints, except as documented Cardiovascular: Reports as per HPI and Reports no additional cardiovascular complaints Respiratory: Reports as per HPI and Reports no additional respiratory complaints Gastrointestinal: Reports as per HPI and Reports no additional gastrointestinal complaints Genitourinary: Reports no additional female genitourinary complaints Musculoskeletal: Reports no additional musculoskeletal complaints Skin/Breast: Reports system reviewed and no additional complaints, except as docu Psychiatric: Reports no additional psychiatric complaints Endocrine: Reports no additional endocrine complaints Hematologic/Lymphatic: Reports no additional hematologic/lymphatic complaints Allergic/Immunologic: Reports no additional allergic/immunologic complaints Reports system reviewed and no additional complaints, except as documented and Reports Abnormal speech present [facility] Past Medical History Medical History Generalized anxiety disorder No known health problems Obesity Social History Social History Alcohol intake: never Advance Directives: No Advance Directives Information Provided: No Physical Exam Vital Signs: Vital Signs: Last Vital Signs Temp 98.1 F 10/11/22 14:49 Pulse 108 H 10/11/22 14:49 Resp 16 10/11/22 14:49 BP 136/77 10/11/22 14:49 Pulse Ox 97 10/11/22 14:49 O2 Del Method 10/11/22 14:49 BMI result Body Mass Index 43.2 Vital signs have been reviewed as appeared to be correct. Blood pressure normal. Heart rate normal. Respiration rate normal. Temperature normal. Oxygen saturation normal. Appearance: Alert. Oriented X3. No acute distress. Head: Normal external exam. Normocephalic. Atraumatic. No Perdomo signs noted. No raccoon eyes noted Eyes: PERRLA. EOMI. Conjunctiva and sclera normal. Eyelids normal. ENT: TM's Normal. Pharynx normal. Uvula midline. Moist mucous membranes. No trismus noted. No drooling noted. No muffled voice noted. Neck: Normal inspection. Neck supple. FROM. No adenopathy. Thyroid Normal. No meningeal signs. No neck mass noted. CVS: Normal heart rate and rhythm. Heart sound normal. No murmurs noted. Pulses normal throughout. Respiratory: No respiratory distress. Painless inspiration. Breath sounds normal. No wheezes/rales/rhonchi noted. Chest nontender. No accessory muscle usage noted or decreased air movement noted. Abdomen: Soft and nontender. Bowel sounds normal in all 4 quadrants. No distention noted. No organomegaly noted. No visible injury noted. Back: No CVA tenderness. Full range of motion noted. Skin: Skin warm and dry. Normal skin color. Normal skin turgor. No rashes/lesions/lacerations noted. Extremities: No lower extremity edema. Extremities exhibit normal range of motion. Extremities nontender. Neuro: Oriented X 3. Cranial nerve exam: II-XII are grossly intact No motor deficit. No sensory deficit. Reflexes normal. Course Course Course Narrative: 22-year-old female flu-like symptoms tested positive for flu A will discharge the patient on Tamiflu. Medical Decision Making Medical Decision Making Differential Diagnoses: Differential diagnosis (Influenza, COVID 19 infection, RSV, pneumonia.) Lab Attestation: I reviewed the patient's lab results. Independent interpretation of EKG, rhythm strip, radiology study: Independent interp EKG,rhythm strip, radiology study I performed an independent interpretation of the: Plain X-Ray (Chest) My interpretation is No acute cardiopulmonary process. Discussion of test interpretation with radiology: Discussion of test interpretation with radiology Discharge Plan Discharge Clinical Impression: Influenza Patient Disposition: Home, Self-Care Instructions: Influenza (ED) Prescriptions: New oseltamivir [Tamiflu] 75 mg capsule 75 mg PO BID 5 Days Qty: 10 0RF guaifenesin 100 mg/5 mL liquid 200 mg PO Q4H PRN (Reason: cough) Qty: 1000 0RF No Action ketorolac 10 mg tablet 10 mg PO TID PRN (Reason: pain) 5 Days Qty: 12 0RF prednisone 20 mg tablet 20 mg PO DAILY Qty: 3 0RF tamsulosin 0.4 mg capsule 0.4 mg PO DAILY Qty: 4 0RF ondansetron HCl [Zofran] 4 mg tablet 4 mg PO Q8H PRN (Reason: nausea and vomiting) Qty: 10 0RF cyclobenzaprine 10 mg tablet 10 mg PO Q8H Qty: 10 0RF acetaminophen [Tylenol Extra Strength] 500 mg tablet 500 mg PO Q6H PRN (Reason: pain) Qty: 14 0RF Referrals: Po,Lexi Hays MD [Primary Care Provider] - Stand Alone Forms: Work/School Release
[2022-10-11] MEDS: guaiFENesin 100 MG/5 ML LIQUID PO (17:39)
== END 2022-10-11 17:43 | disposition home or self-care (01) ==
PROVIDERS: Physician Assistant; Emergency Provider Emergency Medicine; PCP Internal Medicine
DX: J10.1 Influenza due to other identified influenza virus with other respiratory manifestations (principal); R07.89 Other chest pain; R05.9 Cough, unspecified; R50.9 Fever, unspecified; Z20.822 Contact with and (suspected) exposure to COVID-19; Z79.899 Other long term (current) drug therapy
CPT/HCPCS: 71046; 81003; 81025; 87502; 87635; 99282; 99283

== ENCOUNTER 2023-07-11 21:42 | Emergency (ER) | payer OTHER, SELFPAY ==
[2023-07-11 21:53] VITALS: BP 132/83; PULSE 94; RESP 18; TEMP 36.3; O2SAT 98; BMI 38.3
[2023-07-11 22:22] LABS: Appearance Urine Cloudy; Color Urine Yellow; Glucose Urine UA Negative (Negative); Leukocyte Esterase Urine Small (1+) (Negative); Nitrite Urine Negative (Negative); Specific Gravity - Urine 1.025 (1.005-1.025); UMIC TRIGGER UACC YES; Urine Blood Negative (Negative); Urine Ketones Negative (Negative); Urine Protein Negative (Neg-Trace)
[2023-07-11 22:31] LABS: Bacteria Urine 2+ (None Seen); Hyaline Casts Urine 0-2 /LPF (0-2); RBC Urine 0-2 /HPF (0-2); UACC Culture Trigger YES
--- NOTE | 2023-07-11 23:10 | ED_ITS ---
HPI - Female Genitourinary General Chief complaint: Urogenital-Female Stated complaint: ?UTI Time Seen by Provider: 07/11/23 22:46 Source: patient Mode of arrival: ambulatory Limitations: no limitations History of Present Illness HPI Narrative: Patient with dysuria frequency since yesterday no fever no chills no abdominal pain did have UTI earlier this year no history of kidney stones Related Data Previous Rx's Medication Instructions Recorded ketorolac 10 mg tablet 10 mg PO TID PRN pain 5 days #12 11/28/20 tabs ondansetron HCl 4 mg tablet 4 mg PO Q8H PRN nausea and 11/28/20 (Zofran) vomiting #10 tabs prednisone 20 mg tablet 20 mg PO DAILY #3 tabs 11/28/20 tamsulosin 0.4 mg capsule 0.4 mg PO DAILY #4 caps 11/28/20 acetaminophen 500 mg tablet 500 mg PO Q6H PRN pain #14 tabs 07/22/21 (Tylenol Extra Strength) cyclobenzaprine 10 mg tablet 10 mg PO Q8H Muscle spasm #10 tabs 07/22/21 guaifenesin 100 mg/5 mL oral liquid 200 mg (10 mL) PO Q4H PRN cough 10/11/22 #1,000 mL oseltamivir 75 mg capsule (Tamiflu) 75 mg PO BID 5 days #10 caps 10/11/22 cefuroxime axetil 500 mg tablet 500 mg PO BID 7 days #14 tabs 07/11/23 phenazopyridine 200 mg tablet 200 mg PO TID 2 days #6 tabs 07/11/23 (Pyridium) Allergies Allergy/AdvReac Type Severity Reaction Status Date / Time No Known Allergies Allergy Verified 07/11/23 21:53 Review of Systems Review of Systems: Yes all other systems are reviewed and are negative PMFSH Past Medical History Medical History Obesity Generalized anxiety disorder No known health problems Social History Social History Alcohol intake: never Advance Directives: No Advance Directives Information Provided: No Physical Exam Vital Signs: Vital Signs: Last Vital Signs Temp 98.1 F 07/12/23 00:00 Pulse 78 07/12/23 00:00 Resp 16 07/12/23 00:00 BP 112/74 07/12/23 00:00 Pulse Ox 98 07/12/23 00:00 O2 Del Method Room Air 07/12/23 00:00 BMI result Body Mass Index 38.3 Appearance: Alert. Oriented X3. No acute distress. Neck: Normal inspection. Neck supple. CVS: Normal heart rate and rhythm. Pulses normal. Respiratory: No respiratory distress. Equal air entry bilateral, Abdomen: Soft and nontender. Bowel sounds are present, no mass palpable, no CVA tenderness Neuro: Oriented X 3. . Medications Administered Discontinued Medications Generic Name Dose Route Start Last Admin Trade Name Freq PRN Reason Stop Dose Admin Cefuroxime Axetil 500 mg 07/11/23 22:59 07/11/23 23:13 Cefuroxime Axetil 500 Mg Tablet PO 07/11/23 23:00 500 mg ONCE ONE Administration Phenazopyridine HCl 200 mg 07/11/23 22:59 07/11/23 23:13 Phenazopyridine Hcl 200 Mg Tablet PO 07/11/23 23:00 200 mg ONCE ONE Administration Medical Decision Making Medical Decision Making [facility] Narrative: Patient with UTI uncomplicated discharged on Ceftin and Pyridium Lab Data [facility] Lab Attestation statement: I reviewed the patient's lab results. Labs: Lab Results 07/11/23 Range/Units 22:04 Urine Color Yellow Urine Appearance Cloudy Urine pH 6.0 (5.0-9.0) Ur Specific [place] 1.025 (1.005-1.025) Urine Protein Negative (Neg-Trace) mg/dL Urine Glucose (UA) Negative (Negative) mg/dL Urine Ketones Negative (Negative) mg/dL Urine Blood Negative (Negative) Urine Nitrite Negative (Negative) Ur Leukocyte Esterase Small (1+) H (Negative) Urine RBC 0-2 (0-2) /HPF Urine WBC 11-20 H (0-5) /HPF Ur Squamous Epith Cells 11-20 (0-2) /HPF Urine Bacteria 2+ (None Seen) Hyaline Casts 0-2 (0-2) /LPF Discharge Plan Discharge Clinical Impression: Urinary tract infection Patient Disposition: Home, Self-Care Instructions: Urinary Tract Infection in Women (ED) Additional Instructions: Drink plenty of fluids Take antibiotic as prescribed Follow with PCP if not better Prescriptions: New cefuroxime axetil 500 mg tablet 500 mg PO BID 7 Days Qty: 14 0RF phenazopyridine [Pyridium] 200 mg tablet 200 mg PO TID 2 Days Qty: 6 0RF No Action ketorolac 10 mg tablet 10 mg PO TID PRN (Reason: pain) 5 Days Qty: 12 0RF prednisone 20 mg tablet 20 mg PO DAILY Qty: 3 0RF tamsulosin 0.4 mg capsule 0.4 mg PO DAILY Qty: 4 0RF ondansetron HCl [Zofran] 4 mg tablet 4 mg PO Q8H PRN (Reason: nausea and vomiting) Qty: 10 0RF cyclobenzaprine 10 mg tablet 10 mg PO Q8H Qty: 10 0RF acetaminophen [Tylenol Extra Strength] 500 mg tablet 500 mg PO Q6H PRN (Reason: pain) Qty: 14 0RF oseltamivir [Tamiflu] 75 mg capsule 75 mg PO BID 5 Days Qty: 10 0RF guaifenesin 100 mg/5 mL liquid 200 mg PO Q4H PRN (Reason: cough) Qty: 1000 0RF Interventions: ED Discharge Assessment Last Done: 07/12/23 00:14 Discharge Date/Time: 07/12/23 00:17
[2023-07-11] MEDS: Phenazopyridine HCL 200 MG TABLET PO (23:13)
--- NOTE | 2023-07-11 23:17 | PC.NURSE ---
pt medicated per mar
[2023-07-12] VITALS: BP 112/74; PULSE 78; RESP 16; TEMP 36.7; O2SAT 98
== END 2023-07-12 00:17 | disposition home or self-care (01) ==
PROVIDERS: Emergency Provider Internal Medicine; PCP Internal Medicine
DX: N39.0 Urinary tract infection, site not specified (principal); Z79.899 Other long term (current) drug therapy
CPT/HCPCS: 81001; 87086; 99283

== ENCOUNTER 2023-08-12 07:58 | Outpatient (AMB) | payer OTHER, SELFPAY ==
[2023-08-12 08:13] VITALS: BP 112/72; PULSE 88; O2SAT 98; BMI 43.3
--- NOTE | 2023-08-12 08:13 | MHC.PC.OV ---
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 Accompanied by: Self / Same As Patient Allergies No Known Allergies Allergy (Verified 08/12/23 08:27) Medication List - Last Reconciled 08/12/23 by LUCIANA Barclay medroxyprogesterone mg PO Tobacco use date assessed: 08/12/23 Dental Screening Dental Screen Date: 08/12/23 Did you have a dental visit in the last 12 months?: Yes Did you have a dental problem in the last 6 months where you did not have access to dental care?: No Was dental information given to patient?: Patient has dentist HPI HPI Comments History of Present Illness Details 22-year-old female past medical history significant for generalized anxiety disorder and irregular menses. Patient last seen 3 years ago presents today for physical exam. Patient reports irregular menses as a child was started on medroxyprogesterone by her OBGYN which has since regulated her periods. Patient currently follows with counseling weekly; Deonna Baptiste. Tj-7 score 0, Phq- 9 negative. Patient reports mood to left side of her neck for which she has believe this has grown in size, patient like this evaluated by dermatology. Discussed routine blood work with patient however patient declines at this time. Patient denies any chest pain, palpitations, shortness of breath and syncope. Eye exam: September 2023 Patient reports follows with [facility] in [place] for Pap smears. [facility] Medical History (Updated 08/12/23 @ 08:46 by LUCIANA Barclay) Obesity Generalized anxiety disorder No known health problems Surgical History No pertinent past surgical history Family History (Updated 08/12/23 @ 08:29 by LUCIANA Barclay) Mother Hypertension Maternal Grandmother Stroke Social History (Updated 08/12/23 @ 08:30 by LUCIANA Barclay) Housing: Apartment Alcohol intake: current Alcohol intake frequency: holidays/special occasions only Patient Tobacco Use Status: Former Tobacco user Tobacco use type: Cigarette e-Cigarette/Vaping Use: Never Used Second Hand Smoke Exposure: No service: No Current occupational status: employed Current occupational exposures/hazards: No Cognitive needs: No Hearing needs: No Vision needs: Yes Questionnaire PHQ-9 Over the last 2 weeks, how often have you been bothered by any of the following problems? 1. Little interest or pleasure in doing things: not at all 2. Feeling down, depressed, or hopeless: not at all 3. Trouble falling or staying asleep, or sleeping too much: not at all 4. Feeling tired or having little energy: not at all 5. Poor appetite or overeating: not at all 6. Feeling bad about yourself - or that you are a failure or have let yourself or your family down: not at all 7. Trouble concentrating on things, such as reading the newspaper or watching television: not at all 8. Moving or speaking so slowly that other people could have noticed. Or the opposite - being so fidgety or restless that you have been moving around a lot more than usual: not at all 9. Thoughts that you would be better off or of hurting yourself in some way: not at all Total score: 0 Depression Screening Interpretation: Negative Depression Screening Done: Yes 29134 - PHQ-9 Billing: Yes Source: Developed by Drs. William Nixon, Leonie Shaw, Jw Méndez and colleagues, with an educational daxa from [employer]. Thrive Questionnaire Date Thrive assessed: 08/12/23 I am a: Patient What is your living situation today?: I have a steady place to live Within the past 12 months, did the food you bought not last and you didn't have the money to get more?: Never true Within the past 12 months, did you worry whether your food would run out before you got money to buy more?: Never true Do you have trouble paying for medicines?: No Do you have trouble getting transportation to medical appointments?: No Do you have trouble paying your heating and electricity bill?: No Do you have trouble taking care of your child, family member or friend?: No Do you have trouble with day-to-day activities such as bathing, preparing meals, shopping, managing finances, etc.?: No Are you currently unemployed and looking for a job?: No Are you interested in more education?: No Please select the resources that you would like help with: None Currently or been in a relationship where the following occur: no concerns reported AUDIT C Alcohol Use Questionnaire (AUDIT-C) 1. How often do you have a drink containing alcohol?: Never Total Score: 0 TJ-7 AMB Questionnaire TJ-7 Date TJ - 7 assessed: 08/12/23 Feeling nervous, anxious, or on edge: 0 = Not at all Not being able to stop or control worryin = Not at all Worrying too much about different things: 0 = Not at all Trouble relaxin = Not at all Being so restless that it is hard to sit still: 0 = Not at all Becoming easily annoyed or irritable: 0 = Not at all Feeling afraid as if something awful might happen: 0 = Not at all Total TJ-7 score (0-4 normal; 5-9 mild; 10-14 moderate; 15-21 severe): 0 Source: Developed by Drs. William Nixon, Leonie Shaw, Jw Méndez and colleagues, with an educational daxa from [employer]. TJ-7 Assessment Billing TJ-7 Assessment Tool: TJ-7 Assessment 20111 Review of Systems Const Denies chills, Denies fatigue, Denies fever(s) and Denies poor appetite Eyes Denies no additional complaints ENT Reports Normal hearing present Card Denies chest pain, Denies syncope, Denies rapid heart rate and Denies dyspnea Resp Denies cough and Denies dyspnea GI Denies change in stool character, Denies constipation, Denies diarrhea, Denies nausea and Denies vomiting Denies urinary frequency, Denies dysuria and Denies urinary urgency Neuro Reports Normal hearing present, Denies confusion and Denies syncope Psych Denies confusion Endo Denies fatigue Physical exam (Primary Care) Vital Signs: Last Vital Signs Pulse 88 08/12/23 08:13 BP 112/72 08/12/23 08:13 Pulse Ox 98 08/12/23 08:13 Oxygen Delivery Method Room Air 08/12/23 08:13 BMI result Body Mass Index 43.3 Tobacco/Smoking Status: Tobacco use Status Tobacco use date assessed 08/12/23 08/12/23 08:20 Patient Tobacco Use Status Former Tobacco user 08/12/23 08:30 Tobacco use type Cigarette 08/12/23 08:30 e-Cigarette/Vaping Use Never Used 08/12/23 08:30 PHQ-9: PHQ-9 Score PHQ-9: Total score 0 08/12/23 08:32 Depression Screening Interpretation: Negative Thrive Assessment: Date of Thrive Assessment Date Thrive assessed 08/12/23 08/12/23 08:20 Currently or been in a relationship where the following occur: no concerns reported Const General: No confusion Orientation/consciousness: No confusion HENMT Head: Yes normocephalic and Yes atraumatic Ears: external ears normal and TM's normal bilaterally General nose exam: Normal external nose present and Normal nasal mucous membranes and turbinates present Face and sinus: Yes normal facial exam and Yes sinuses nontender Face images: 1. brown raised, irregular nevi. Mouth: moist mucous membranes Throat: Yes tonsils normal Eyes Conjunctivae: conjunctivae normal Sclerae: sclerae normal Pupils: Equal, round and reactive pupils present and Pupils normal by confrontation EOM: EOMs intact bilaterally Direct Ophthalmoscopy: normal light reflex Neck Neck: Yes no lymphadenopathy and Yes supple Thyroid: Thyroid normal Chest Chest palpation & inspection: normal inspection of the chest Resp Effort & Inspection: normal respiratory effort Auscultation: clear to auscultation bilaterally, no crackles, no rhonchi and no wheezes Cardio Rate: regular rate Rhythm: regular rhythm Peripheral pulses: radial pulses present and dorsalis pedis present GI Inspection: Yes normal to inspection Palpation (GI): Soft to palpation, nontender and No hepatosplenomegaly present Auscultation: normoactive bowel sounds Skin General skin exam: no rashes or lesions noted Neuro General: No confusion Cranial nerves: Yes Equal, round and reactive pupils present and Yes Normal hearing present Cognition (Neuro): normal cognition Gait exam (Neuro): Normal gait present Motor exam (neuro): 5/5 motor strength present throughout Deep tendon reflexes (DTR's): Right brachioradialis reflex intensity grade: 2+, Left brachioradialis reflex intensity grade: 2+, Right patellar reflex intensity grade: 2+ and Left patellar reflex intensity grade: 2+ Extrem General: No edema Office Procedures Flu Questionnaire Does the patient have a severe egg allergy?: No Immunizations flu vacc [id number] 6mos up(PF) 60 mcg(15 mcgx4)/0.5 mL IM syringe Performing Provider: LUCIANA Barclay [place] [facility] Documented (not given) by: ZANE Barragan on 08/12/23 08:20 Reason Not Given: Patient Refused Assessment and Plan Assessment & Plan (1) History of irregular menstrual bleeding: Code(s): Z87.42 - Personal history of other diseases of the female genital tract Plan: Continue on current medication. (2) Generalized anxiety disorder: Comment: Deonna Baptiste Code(s): F41.1 - Generalized anxiety disorder Plan: Continue follow-up with counseling. (3) Physical exam, annual: Code(s): Z00.00 - Encounter for general adult medical examination without abnormal findings Plan: Follow-up in 1 year. (4) Atypical nevi: Code(s): D22.9 - Melanocytic nevi, unspecified Plan: Referral entered to dermatology. (5) Obesity: Code(s): E66.9 - Obesity, unspecified Plan: Discussed diet and exercise to reduce BMI. Orders: Orders Influenza [id number] Immunization Today Z23 - Encounter for immunization Referrals Dermatology Referral D22.9 - Melanocytic nevi, unspecified Coding Level of Care Code New Pt Prev Care 18-39yr([id number] Diagnoses History of irregular menstrual bleeding Z87.42 Generalized anxiety disorder F41.1 Physical exam, annual Z00.00 Atypical nevi D22.9 Obesity E66.9 Additional Codes TJ-7 Assessment Billing - TJ-7 Assessment Tool: TJ-7 Assessment 07114 ([id number])
== END 2023-08-12 08:43 | disposition home or self-care (01) ==
PROVIDERS: PCP Nurse Practitioner Family; Visit Provider Nurse Practitioner Family
DX: Z00.00 Encounter for general adult medical examination without abnormal findings (principal); D22.9 Melanocytic nevi, unspecified; E66.01 Morbid (severe) obesity due to excess calories; Z68.41 Body mass index [BMI] 40.0-44.9, adult
CPT/HCPCS: 99385

== ENCOUNTER 2023-12-06 00:47 | Emergency (ER) | payer OTHER, SELFPAY ==
[2023-12-06 00:56] VITALS: BP 130/78; PULSE 93; RESP 18; TEMP 36.9; O2SAT 95; BMI 43.8
[2023-12-06 02:03] LABS: MANUAL DIFF FLAG NO
[2023-12-06 02:04] LABS: Basophils Absolute Auto 0.1 X10*3/uL (0.0-0.2); Basophils Percent Auto 0.4 % (0-2); Imm Gran Abs Auto 0.04 X10*3/uL (0.00-0.03); Imm Gran Pct Auto 0.4 % (0.0-0.4); Lymphocytes Absolute Auto 1.8 X10*3/uL (1.2-4.9); Lymphocytes Percent Auto 16.3 % (20-40); Mean Corpuscular HGB Conc 33.3 g/dl (31.0-35.0); Mean Corpuscular Hemoglobin 26.9 pg (27.0-33.0); Mean Corpuscular Volume 80.8 fL (80.0-98.0); Mean Platelet Volume 8.8 fL (9.4-12.3); Monocytes Absolute Auto 0.5 X10*3/uL (0.1-1.2); Neutrophils Absolute Auto 8.9 x10*3/uL (2.0-8.3); Neutrophils Percent Auto 78.9 % (45-73); Platelet Count 437 X10*3/uL (160-400); Red Cell Distribution Width 13.2 % (11.0-16.0); White Blood Count 11.3 X10*3/uL (4.8-10.8)
[2023-12-06 02:05] LABS: Appearance Urine Clear; Color Urine Yellow; Glucose Urine UA Negative (Negative); Leukocyte Esterase Urine Negative (Negative); Nitrite Urine Negative (Negative); Specific Gravity - Urine 1.025 (1.005-1.025); Urine Blood Negative (Negative); Urine Ketones 15 mg/dL (Negative); Urine Protein Negative (Neg-Trace)
[2023-12-06 02:06] LABS: UPreg QC Valid YES; Urine Pregnancy NEGATIVE (NEGATIVE)
[2023-12-06 02:17] LABS: Alanine Aminotransferase 24 U/L (0-31); Albumin Level 4.3 g/dL (3.5-5.0); Alkaline Phosphatase 113 U/L (39-117); Anion Gap 13 (12-20); Aspartate Amino Transferase 19 U/L (5-31); Bilirubin Direct 0.1 mg/dL (0.0-0.5); Bilirubin Total 0.3 mg/dL (0.0-1.0); Blood Urea Nitrogen 6 mg/dL (9-16); Calcium 9.5 mg/dL (8.4-10.2); Carbon Dioxide 23 mmol/L (22-29); Chloride 106 mmol/L (96-108); Estimated Glomerular Filt Rate > 60; Glucose Random 128 mg/dL (60-115); Lipase 10 U/L (8-78); Potassium 3.9 mmol/L (3.3-5.1); Sodium 138 mmol/L (135-145); Total Protein 8.7 g/dL (6.5-8.0)
[2023-12-06 04:43] VITALS: BP 126/83; PULSE 87; RESP 18; TEMP 36.9; O2SAT 98
--- NOTE | 2023-12-06 04:44 | MHC.EDTECH ---
This tech took over care at this time,hourly rounds and vitals completed,patient is resting at this time and call martinez in reach
--- NOTE | 2023-12-06 05:08 | PC.NURSE ---
Pt is a 23 y/o female who presents for evaluation of abd pain in the epigastric area that radiates upward. Pain is rated a 9/10 and is accompanied by some nausea and reported vomiting. Denies chance of , but is not presently using any contraception. No history of liver, kidney, or gallbladder problems. Reports taking a diet pill at 1600 hours today, has taken it in the past without issue. History is significant for chronic constipation, BMs every 3 days approx. Denies trauma, recent illness, fever, and any travel. Denies headache and dizziness and shortness of breath. Pt is pleasant and cooperative with staff. Verbalizes needs and is ambulatory with a steady gait.
--- NOTE | 2023-12-06 05:18 | ED_ITS ---
HPI - Abdominal Pain General Chief Complaint: Abdominal Pain Stated Complaint: Abd pain/Vomiting Time Seen by Provider: 12/06/23 04:17 Source: patient Mode of arrival: ambulatory Limitations: no limitations History of Present Illness HPI narrative: 23 yo female with no sig PMH here with c/o taking Truvy which is an OTC supplement for weight loss she has never had issues before. She took it tonight and then started with epigastric abdominal pain and n/v. Denies diarrhea. She denies fevers. She has never had abdominal surgery in the past. She denies sick contacts or food exposures MD elicited complaint: abdominal pain Pertinent past history: none Onset (ago): hour(s) (several ) Pain Consistency: constant Location: epigastric Severity: moderate Quality: aching Radiation: none Migration to: no migration Exacerbating factors: eating Relieving factors: nothing Associated symptoms: nausea and vomiting Related Data Home Medications Medication Instructions Recorded Confirmed medroxyprogesterone 10 mg tablet mg PO 08/12/23 08/12/23 Previous Rx's Medication Instructions Recorded ondansetron 4 mg disintegrating 4 mg PO Q8H PRN nausea and 12/06/23 tablet vomiting #20 tabs Allergies Allergy/AdvReac Type Severity Reaction Status Date / Time No Known Allergies Allergy Verified 08/12/23 08:27 Review of Systems Review of Systems Constitutional : No Weight loss, No Fever, No Chills ENT/Mouth : No sore throat, No Rhinorrhea Eyes: No Swelling, No Redness Cardiovascular : No Chest Pain, No SOB, NoEdema Respiratory : No Cough, No Sputum, No Wheezing Gastrointestinal : Positive Nausea, Positive Vomiting, no Diarrhea, positive abdominal Pain, No Hematochezia, No Melena Genitourinary : No Dysuria, No Urinary Frequency, No Hematuria, No Urgency Musculoskeletal : No joint pain, No Myalgias, No Joint Swelling Skin : No Skin Lesions, No rash Neuro : No Weakness, No Numbness, No Dizziness, No Headache Psych : No Anxiety/Panic, No Depression All other systems reviewed and are negative. [facility] Past Medical History Attestation statement: The following information was validated with the patient. Source: old records reviewed Medical History Obesity Generalized anxiety disorder No known health problems Surgical History No pertinent past surgical history Family History Family History (Updated 08/12/23 @ 08:29 by LUCIANA Barclay) Mother Hypertension Maternal Grandmother Stroke Social History Social History Housing: Apartment Alcohol intake: current Alcohol intake frequency: holidays/special occasions only Patient Tobacco Use Status: Former Tobacco user Tobacco use type: Cigarette e-Cigarette/Vaping Use: Never Used Second Hand Smoke Exposure: No Advance Directives: No Advance Directives Information Provided: No service: No Current occupational status: employed Current occupational exposures/hazards: No Cognitive needs: No Hearing needs: No Vision needs: Yes Physical Exam ED Vital Signs: Vital Signs - 24 hr 12/06/23 00:56 12/06/23 04:43 Temperature 98.4 F 98.5 F Pulse Rate 93 87 Respiratory Rate 18 18 Blood Pressure 130/78 126/83 Pulse Oximetry 95 98 Oxygen Delivery Method Room Air Room Air BMI result Body Mass Index 43.8 Appearance: Alert. Oriented X3. No acute distress. Eyes: Pupils equal, round and reactive to light. ENT: Pharynx normal. Neck: Normal inspection. Neck supple. CVS: Normal heart rate and rhythm. Pulses normal. Respiratory: No respiratory distress. Breath sounds normal. Abdomen: Soft and mild epigastric ttp no rebound or guarding, neg Mejia's sign Skin: Skin warm and dry. Normal skin color. Normal skin turgor. Extremities: No lower extremity edema. No calf ttp Neuro: Oriented X 3. No motor deficit. No sensory deficit. Medical Decision Making Medical Decision Making [facility] Narrative: 23 yo female with PMH of anxiety here with c/o epigastric pain starting afterwards and associated n/v she has no RUQ or RLQ pain - she notes no prior issues with medication. She has no peritoneal signs or mejia's sign. Seems likely to be GERD or gastritis. Labs, IVF, supportive medications will reassess afterwards Differential Diagnosis Differential Diagnoses: The differential diagnosis associated with the presentation includes gastritis, food toxicity, GERD, med reaction Admission/Observation Consideration of admission/observation: Escalation of care including admission/observation considered feels better tolerating PO stable for DC Lab Data [facility] Lab Attestation statement: I reviewed the patient's lab results. 12/06/23 01:57 12/06/23 01:57 Labs: Lab Results 12/06/23 12/06/23 Range/Units 01:57 01:58 WBC 11.3 H (4.8-10.8) X10*3/uL RBC 5.20 (4.20-5.50) X10*6/uL Hgb 14.0 (12.0-16.0) g/dl Hct 42.0 (37.0-47.0) % MCV 80.8 (80.0-98.0) fL MCH 26.9 L (27.0-33.0) pg MCHC 33.3 (31.0-35.0) g/dl RDW 13.2 (11.0-16.0) % Plt Count 437 H (160-400) X10*3/uL MPV 8.8 L (9.4-12.3) fL Immature Gran % (Auto) 0.4 (0.0-0.4) % Neut % (Auto) 78.9 H (45-73) % Lymph % (Auto) 16.3 L (20-40) % Haralson % (Auto) 4.0 (2-11) % Eos % (Auto) 0.0 (0-4) % Baso % (Auto) 0.4 (0-2) % Lymph # (Auto) 1.8 (1.2-4.9) X10*3/uL Haralson # (Auto) 0.5 (0.1-1.2) X10*3/uL Eos # (Auto) 0.0 (0.0-0.4) X10*3/uL Baso # (Auto) 0.1 (0.0-0.2) X10*3/uL Abs Immat Gran (auto) 0.04 H (0.00-0.03) X10*3/uL Absolute Neuts (auto) 8.9 H (2.0-8.3) x10*3/uL Absolute Nucleated RBC 0.000 (0.0-0.012) X10*3/uL Nucleated RBC % (auto) 0.0 (0.0-0.2) /100WBC Sodium 138 (135-145) mmol/L Potassium 3.9 (3.3-5.1) mmol/L Chloride 106 (96-108) mmol/L Carbon Dioxide 23 (22-29) mmol/L Anion Gap 13 (12-20) BUN 6 L (9-16) mg/dL Creatinine 0.71 (0.5-1.4) mg/dL Estim Creat Clear Calc 158.0 Estimated GFR > 60 Random Glucose 128 H (60-115) mg/dL Calcium 9.5 D (8.4-10.2) mg/dL Total Bilirubin 0.3 (0.0-1.0) mg/dL Direct Bilirubin 0.1 (0.0-0.5) mg/dL AST 19 (5-31) U/L ALT 24 (0-31) U/L Alkaline Phosphatase 113 (39-117) U/L Total Protein 8.7 H (6.5-8.0) g/dL Albumin 4.3 (3.5-5.0) g/dL Lipase 10 (8-78) U/L Urine Color Yellow Urine Appearance Clear Urine pH 6.0 (5.0-9.0) Ur Specific Philip 1.025 (1.005-1.025) Urine Protein Negative (Neg-Trace) mg/dL Urine Glucose (UA) Negative (Negative) mg/dL Urine Ketones 15 (Negative) mg/dL Urine Blood Negative (Negative) Urine Nitrite Negative (Negative) Ur Leukocyte Esterase Negative (Negative) Urine Test NEGATIVE (NEGATIVE) External Record Review External record reviewed: Office record Tests considered The following testing was considered but not selected: abdominal US but labs reassuring and symptoms improved Prescription Management I considered prescription management with: Other Medications Administered Discontinued Medications Generic Name Dose Route Start Last Admin Trade Name Art PRN Reason Stop Dose Admin Famotidine 20 mg 12/06/23 04:38 12/06/23 05:35 Famotidine/Pf 20 Mg/2 Ml Vial IVPUSH 12/06/23 04:39 20 mg ONCE ONE Administration Sodium Chloride 1,000 mls @ 999 mls/hr 12/06/23 04:45 12/06/23 05:40 Ns IV 12/06/23 05:45 999 mls/hr .Q1H1M JIE Administration Ketorolac Tromethamine 15 mg 12/06/23 04:38 12/06/23 05:36 Ketorolac Tromethamine 15 Mg/Ml Vial IVPUSH 12/06/23 04:39 15 mg ONCE ONE Administration Ondansetron HCl 4 mg 12/06/23 04:38 12/06/23 05:34 Ondansetron Hcl 4 Mg/2 Ml Vial IVPUSH 12/06/23 04:39 4 mg ONCE ONE Administration Discharge Plan Discharge Clinical Impression: Abdominal pain Qualifiers: Abdominal location: epigastric Qualified Code(s): R10.13 - Epigastric pain Vomiting Qualifiers: Vomiting type: unspecified Nausea presence: with nausea Qualified Code(s): R 11.2 - Nausea with vomiting, unspecified Patient Disposition: Home, Self-Care Instructions: Acute Nausea and Vomiting (ED), Abdominal Pain (ED) Additional Instructions: labs reassuring return for worsening pain, fevers, vomiting, inability to eat or drink bland diet for 24 hours advance slowly as tolerated Prescriptions: New ondansetron 4 mg tablet,disintegrating 4 mg PO Q8H PRN (Reason: nausea and vomiting) Qty: 20 0RF No Action medroxyprogesterone 10 mg tablet PO Stand Alone Forms: Work/School Release
[2023-12-06] MEDS: ondansetron HCL 4 MG/2 ML VIAL IVPUSH (05:34)
[2023-12-06] MEDS: Famotidine/PF 20 MG/2 ML VIAL IVPUSH (05:35)
[2023-12-06] MEDS: Ketorolac Tromethamine 15 MG/ML VIAL IVPUSH (05:36)
[2023-12-06] MEDS: 0.9 % Sodium Chloride 1,000 ML 999 ML IV (05:40)
--- NOTE | 2023-12-06 05:40 | PC.NURSE ---
20G IV access established in right AC. Line is patent, flushes well without pain and there are no signs of infiltration.
--- NOTE | 2023-12-06 06:03 | PC.NURSE ---
Pt is A & O X 4, pleasant and cooperative. Skin is W/P/D and no acute distress is observed. Pt verbalizes any needs and reports being comfortable at this time.
--- NOTE | 2023-12-06 06:21 | MHC.EDTECH ---
Hourly rounds and vitals completed,patient drank a can of zulma ronald and tolerated well.
[2023-12-06 06:42] VITALS: BP 123/62; PULSE 75; RESP 18; TEMP 36.5; O2SAT 99
== END 2023-12-06 07:14 | disposition home or self-care (01) ==
PROVIDERS: Emergency Provider Emergency Medicine
DX: R10.13 Epigastric pain (principal); R11.2 Nausea with vomiting, unspecified; Z79.899 Other long term (current) drug therapy
CPT/HCPCS: 36415; 80048; 80076; 81003; 81025; 83690; 85025; 96361; 96374; 96375; 99284; J1885; J2405

== ENCOUNTER 2024-06-14 14:04 | Outpatient (AMB) | payer OTHER, SELFPAY ==
[2024-06-14 14:13] VITALS: BP 112/78; PULSE 99; O2SAT 98; BMI 43.1
--- NOTE | 2024-06-14 14:13 | MHC.PC.OV ---
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: No Allergies No Known Allergies Allergy (Verified 06/14/24 14:33) Medication List - Last Reconciled 06/14/24 by Charmaine Kauffman PA-C medroxyprogesterone mg PO Tobacco use date assessed: 06/14/24 Dental Screening Dental Screen Date: 06/14/24 Did you have a dental visit in the last 12 months?: No Did you have a dental problem in the last 6 months where you did not have access to dental care?: No Was dental information given to patient?: Patient has dentist HPI BAHMAN Shweta/ kareem CARNEY HPI Details 23 year old female with past history of generalized anxiety disorder last seen by TAPE CUTTER coming in for annual visit. Patient states she regularly follows with a counselor for anxiety. She has routine eye exams as well as routine gynecological exams. She does mentioned that she deals with constipation and often has a bowel movement every 3-4 days and has been using apple cider pills with mild relief. She also mentioned she struggles with weight loss and is looking to lose more weight but has been able to. She also mentioned she has bilateral leg swelling when standing on her feet for prolonged amount of time and has not tried anything for this. [facility] Medical History Obesity Generalized anxiety disorder No known health problems Surgical History No pertinent past surgical history Family History (Updated 06/14/24 @ 14:34 by Charmaine Kauffman PA-C) Mother Hypertension Leukemia Maternal Grandmother Stroke Social History Housing: Apartment Alcohol intake: current Alcohol intake frequency: holidays/special occasions only Patient Tobacco Use Status: Former Tobacco user Tobacco use type: Cigarette e-Cigarette/Vaping Use: Never Used Second Hand Smoke Exposure: No service: No Current occupational status: employed Current occupational exposures/hazards: No Cognitive needs: No Hearing needs: No Vision needs: Yes Questionnaire Thrive Questionnaire Date Thrive assessed: 08/12/23 AUDIT C Alcohol Use Questionnaire (AUDIT-C) 1. How often do you have a drink containing alcohol?: Never 3. How often do you have six or more drinks on one occasion?: Never Total Score: 0 TONNY-7 AMB Questionnaire TONNY-7 Date TONNY - 7 assessed: 06/14/24 Feeling nervous, anxious, or on edge: 0 = Not at all Not being able to stop or control worryin = Not at all Worrying too much about different things: 0 = Not at all Trouble relaxin = Not at all Being so restless that it is hard to sit still: 0 = Not at all Becoming easily annoyed or irritable: 0 = Not at all Feeling afraid as if something awful might happen: 0 = Not at all Total TONNY-7 score (0-4 normal; 5-9 mild; 10-14 moderate; 15-21 severe): 0 Source: Developed by Drs. William Nixon, Leonie Shaw, Jw Méndez and colleagues, with an educational daxa from [employer]. TONNY-7 Assessment Billing TONNY-7 Assessment Tool: TONNY-7 Assessment 65538 Review of Systems Const Denies body aches, Denies fatigue, Denies fever(s), Denies frequent falls, Denies headache(s) and Denies weakness Eyes Reports no additional complaints and Denies change in vision ENT Denies dysphagia, Denies dizziness, Denies facial pain, Denies headache(s), Denies nasal congestion and Denies odynophagia Card Denies chest pain, Denies syncope, Denies irregular heart rhythm, Reports leg edema (with prolonged standing), Denies lightheadedness and Denies dyspnea Resp Denies cough and Denies dyspnea GI Reports constipation, Denies dysphagia, Denies dyspepsia, Denies diarrhea, Denies nausea, Denies odynophagia and Denies vomiting Denies urinary frequency, Denies dysuria, Denies urinary hesitancy and Denies urinary urgency Musc Denies back pain and Denies myalgias Skin/Breast Reports as per HPI Neuro Denies dizziness, Denies syncope, Denies frequent falls, Denies headache(s) and Denies weakness Psych Reports no additional complaints Endo Denies fatigue Physical exam (Primary Care) Vital Signs: Last Vital Signs Pulse 99 06/14/24 14:13 BP 112/78 06/14/24 14:13 Pulse Ox 98 06/14/24 14:13 Oxygen Delivery Method Room Air 06/14/24 14:13 BMI result Body Mass Index 43.1 Tobacco/Smoking Status: Tobacco use Status Tobacco use date assessed 06/14/24 06/14/24 14:14 Patient Tobacco Use Status Former Tobacco user 06/14/24 14:14 Tobacco use type Cigarette 06/14/24 14:14 e-Cigarette/Vaping Use Never Used 06/14/24 14:14 Thrive Assessment: Date of Thrive Assessment Date Thrive assessed 08/12/23 06/14/24 14:14 Const General: cooperative, healthy appearing, comfortable and no acute distress Orientation/consciousness: patient oriented x3 HENMT Head: Yes normocephalic Ears: hearing grossly normal bilaterally, external ears normal, TM's normal bilaterally and EAC's normal General nose exam: Normal external nose present Face and sinus: Yes normal facial exam and Yes sinuses nontender Mouth: Normal oral and palatal mucosa present and tongue normal Throat: Yes posterior oropharynx normal Eyes General: appearance normal, both eyes and all related structures Conjunctivae: conjunctivae normal Pupils: Equal, round and reactive pupils present EOM: EOMs intact bilaterally and No Nystagmus present Neck Neck: Yes normal visual inspection, Yes full ROM and Yes no lymphadenopathy Chest Chest palpation & inspection: normal inspection of the chest Resp Effort & Inspection: normal respiratory effort Auscultation: clear to auscultation bilaterally, no crackles, no rales, no rhonchi, no wheezes and breath sounds present Cardio Rate: regular rate Rhythm: regular rhythm Peripheral pulses: radial pulses present and dorsalis pedis present GI Inspection: Yes normal to inspection and No Abdominal wall edema Palpation (GI): Soft to palpation, not firm and nontender Auscultation: normal bowel sounds Rectal Exam - Female: deferred General: Yes no CVA tenderness Back/Spine/Pelvis Back: no CVA tenderness Skin Other: Multiple small nevi on the chest and neck some with atypical features. Neuro General: patient oriented x3 Cranial nerves: Yes Equal, round and reactive pupils present, Yes Midline tongue present, Yes Ability to bilaterally elevate shoulders present and No Nystagmus present Gait exam (Neuro): Normal gait present Extrem General: Yes normal to inspection, Yes full ROM, No no pedal edema and No edema Psych Speech and movement: Normal speech and movement present Affect: normal affect Insight: Good insight present (Psych) Judgement: Good judgement present (Psych) Assessment and Plan Assessment & Plan (1) Generalized anxiety disorder: Comment: Deonna Baptiste Code(s): F41.1 - Generalized anxiety disorder Plan: Patient regularly follows with counselor and feels her anxiety is well managed at this time. (2) Atypical nevi: Code(s): D22.9 - Melanocytic nevi, unspecified Plan: Patient has been previously referred to dermatology but was never seen. New referral sent to dermatology for evaluation of nevi. (3) Obesity: Code(s): E66.9 - Obesity, unspecified Plan: Patient BMI is 43.1. She has been trying weight loss herself with diet and exercise but feels she has not made any progress. We will try to get Wegovy covered through her insurance at her request. Follow up in 2 months. Encouraged healthy diet and exercise. (4) History of irregular menstrual bleeding: Code(s): Z87.42 - Personal history of other diseases of the female genital tract Plan: Continue on hormone replacement therapy. 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 (5) Annual physical exam: Code(s): Z00.00 - Encounter for general adult medical examination without abnormal findings Plan: Follows with [facility] industrial refrigeration mechanic for regular pap smears. Patient is up to date on all routine screenings and vaccinations for her age. Updated blood work ordered at this time. (6) Constipation: Code(s): K59.00 - Constipation, unspecified Plan: Patient states she regularly deals with constipation and has tried using apple cider gummies in the past with very mild relief. We will trial senna to help with constipation. (7) Leg swelling: Code(s): M79.89 - Other specified soft tissue disorders Plan: No leg swelling on exam today however patient does state when she works long shifts she finds she has swelling in her legs and ankles. Advised patient to trial compression stockings while at work and elevate the legs when at home. Also encouraged regular exercise. Orders: Orders Complete Blood Count Auto Diff Today Z00.00 - Encounter for general adult medical examination without abnormal findings TSH reflex Free T4 Today Z00.00 - Encounter for general adult medical examination without abnormal findings Free T4 (Free Thyroxine) Today Z00.00 - Encounter for general adult medical examination without abnormal findings Vitamin B12 and Folate Today Z00.00 - Encounter for general adult medical examination without abnormal findings Comprehensive Met. Panel Today Z00.00 - Encounter for general adult medical examination without abnormal findings Vitamin D 25-OH (D2 and D3) Today Z00.00 - Encounter for general adult medical examination without abnormal findings T Spot TB Today Z00.00 - Encounter for general adult medical examination without abnormal findings Referrals Dermatology Referral D22.9 - Melanocytic nevi, unspecified Medications: New sennosides (senna) 8.6 mg PO BEDTIME PRN 30 caps 1RF constipation semaglutide (weight loss) (Wegovy) administer weeks 1 through 4 of therapy 0.25 mg (0.5 mL) subcut QWEEK 2 mL 0RF Coding Level of Care Code Est Pt Level 3 (70355) Est Pt Prev Care 18-39y(05989) Diagnoses Generalized anxiety disorder F41.1 Atypical nevi D22.9 Obesity E66.9 History of irregular menstrual bleeding Z87.42 Annual physical exam Z00.00 Constipation K59.00 Leg swelling M79.89 Additional Codes TONNY-7 Assessment Billing - TONNY-7 Assessment Tool: TONNY-7 Assessment [id number] ([id number])
== END 2024-06-14 15:09 | disposition home or self-care (01) ==
DX: Z00.00 Encounter for general adult medical examination without abnormal findings (principal); E66.9 Obesity, unspecified; Z68.41 Body mass index [BMI] 40.0-44.9, adult; F41.1 Generalized anxiety disorder; D22.9 Melanocytic nevi, unspecified; Z87.42 Personal history of other diseases of the female genital tract; K59.00 Constipation, unspecified; M79.89 Other specified soft tissue disorders
CPT/HCPCS: 99213; 99395

== ENCOUNTER 2024-07-06 11:07 | Outpatient (REF) | payer OTHER, SELFPAY ==
[2024-07-06 11:23] LABS: MANUAL DIFF FLAG NO
[2024-07-06 11:45] LABS: Basophils Absolute Auto 0.1 X10*3/uL (0.0-0.2); Basophils Percent Auto 0.7 % (0-2); Eosinophils Absolute Auto 0.1 X10*3/uL (0.0-0.4); Eosinophils Percent Auto 1.4 % (0-4); Hematocrit 38.7 % (37.0-47.0); Hemoglobin 12.9 g/dl (12.0-16.0); Imm Gran Abs Auto 0.03 X10*3/uL (0.00-0.03); Imm Gran Pct Auto 0.4 % (0.0-0.4); Lymphocytes Absolute Auto 2.9 X10*3/uL (1.2-4.9); Lymphocytes Percent Auto 34.3 % (20-40); Mean Corpuscular HGB Conc 33.3 g/dl (31.0-35.0); Mean Corpuscular Hemoglobin 27.1 pg (27.0-33.0); Mean Corpuscular Volume 81.3 fL (80.0-98.0); Mean Platelet Volume 9.2 fL (9.4-12.3); Monocytes Absolute Auto 0.7 X10*3/uL (0.1-1.2); Monocytes Percent Auto 7.9 % (2-11); Neutrophils Absolute Auto 4.6 x10*3/uL (2.0-8.3); Neutrophils Percent Auto 55.3 % (45-73); Platelet Count 368 X10*3/uL (160-400); Red Blood Count 4.76 X10*6/uL (4.20-5.50); Red Cell Distribution Width 13.2 % (11.0-16.0); White Blood Count 8.3 X10*3/uL (4.8-10.8)
[2024-07-06 12:28] LABS: Alanine Aminotransferase 19 U/L (0-31); Albumin Level 3.9 g/dL (3.5-5.0); Alkaline Phosphatase 122 U/L (39-117); Anion Gap 12 (12-20); Aspartate Amino Transferase 14 U/L (5-31); Bilirubin Total 0.3 mg/dL (0.0-1.0); Blood Urea Nitrogen 9 mg/dL (9-16); Calcium 9.4 mg/dL (8.4-10.2); Carbon Dioxide 24 mmol/L (22-29); Chloride 109 mmol/L (96-108); Estimated Glomerular Filt Rate > 60; Glucose Random 90 mg/dL (60-115); Potassium 3.9 mmol/L (3.3-5.1); Sodium 141 mmol/L (135-145); Total Protein 7.2 g/dL (6.5-8.0)
[2024-07-06 12:33] LABS: Free T4 (Free Thyroxine) 0.97 ng/dL (0.71-1.85); TSH reflex Free T4 2.08 uIU/mL (0.32-4.0)
[2024-07-06 12:45] LABS: Folate 12.6 ng/mL (> or = 4.0); Vitamin B12 388 pg/mL (200-900)
[2024-07-09 07:23] LABS: TS Negative Control Passed; TS Panel A 0; TS Panel B 0; TS Positive Control Passed; TSpotTB Negative (Negative)
[2024-07-10 16:33] LABS: Vitamin D 25-OH, D2 <4 ng/mL; Vitamin D 25-OH, D3 20 ng/mL; Vitamin D 25-OH, Total 20 ng/mL (30-100)
== END 2024-07-06 11:08 | disposition home or self-care (01) ==
LOC: HO.LAB 11:07
DX: Z00.00 Encounter for general adult medical examination without abnormal findings (principal)
CPT/HCPCS: 36415; 80053; 82306; 82607; 82746; 84439; 84443; 85025; 86481

== ENCOUNTER 2024-08-31 08:29 | Outpatient (AMB) | payer OTHER, SELFPAY ==
[2024-08-31 08:34] VITALS: BP 120/70; PULSE 99; O2SAT 97; BMI 43.9
--- NOTE | 2024-08-31 08:34 | MHC.PC.OV ---
Vital Signs 08/31/24 08:34 Height 5 ft 5 in Weight 264 lb BMI 43.9 BP 120/70 Blood Pressure Location Lt brachial Position Sitting Pulse 99 Pulse Source Pulse Oximeter Pulse Oximetry (%) 97 Oxygen Delivery Method Room Air Intake Visit Reasons: Resched from 08/14: f/u weight loss Allergies No Known Allergies Allergy (Verified 08/31/24 08:38) Medication List - Last Reconciled 08/31/24 by Charmaine Kauffman PA-C cholecalciferol (vitamin D3) 25 mcg PO DAILY medroxyprogesterone mg PO semaglutide (weight loss) (Wegovy) 0.5 mg (0.5 mL) subcut QWEEK semaglutide (weight loss) (Wegovy) 0.25 mg (0.5 mL) subcut QWEEK sennosides (senna) 8.6 mg PO BEDTIME PRN Tobacco use date assessed: 06/14/24 Dental Screening Dental Screen Date: 06/14/24 HPI Resched from 08/14: f/u weight loss HPI Details 24-year-old female with past medical history of generalized anxiety disorder coming to the office for follow up on weight loss. Patient states she is feeling generally well and has been tolerating the up titration of the Wegovy well. Denies any nausea, vomiting, diarrhea. She has not seen much of an improvement in her weight but would like to continue increasing the medication does. [facility] Medical History Obesity Generalized anxiety disorder No known health problems Surgical History No pertinent past surgical history Family History (Updated 06/14/24 @ 14:34 by Charmaine Kauffman PA-C) Mother Hypertension Leukemia Maternal Grandmother Stroke Social History Housing: Apartment Alcohol intake: current Alcohol intake frequency: holidays/special occasions only Patient Tobacco Use Status: Former Tobacco user Tobacco use type: Cigarette e-Cigarette/Vaping Use: Never Used Second Hand Smoke Exposure: No service: No Current occupational status: employed Current occupational exposures/hazards: No Cognitive needs: No Hearing needs: No Vision needs: Yes Questionnaire Thrive Questionnaire Date Thrive assessed: 08/12/23 AUDIT C Alcohol Use Questionnaire (AUDIT-C) 1. How often do you have a drink containing alcohol?: Never 3. How often do you have six or more drinks on one occasion?: Never Total Score: 0 TONNY-7 AMB Questionnaire TONNY-7 Date TONNY - 7 assessed: 06/14/24 Source: Developed by Drs. William Nixon, Leonie Shaw, Jw Méndez and colleagues, with an educational daxa from [employer]. Review of Systems Const Denies body aches, Denies chills and Denies fever(s) Eyes Reports no additional complaints ENT Reports no additional complaints Card Denies chest pain and Denies dyspnea Resp Denies dyspnea GI Denies abdominal pain, Denies bloating, Denies constipation, Denies diarrhea, Denies nausea and Denies vomiting Reports no additional complaints Musc Reports no additional complaints Skin/Breast Reports system reviewed and no additional complaints, except as documented Neuro Reports no additional complaints Psych Reports no additional complaints Physical exam (Primary Care) Tobacco/Smoking Status: Tobacco use Status Tobacco use date assessed 06/14/24 06/14/24 14:14 Patient Tobacco Use Status Former Tobacco user 06/14/24 14:14 Tobacco use type Cigarette 06/14/24 14:14 e-Cigarette/Vaping Use Never Used 06/14/24 14:14 Thrive Assessment: Date of Thrive Assessment Date Thrive assessed 08/12/23 06/14/24 14:14 Const General: cooperative, healthy appearing, comfortable and no acute distress Orientation/consciousness: patient oriented x3 [facility] Head: Yes normocephalic Ears: hearing grossly normal bilaterally General nose exam: Normal external nose present Eyes General: appearance normal, both eyes and all related structures Conjunctivae: conjunctivae normal Neck Neck: Yes full ROM and Yes no lymphadenopathy Resp Effort & Inspection: normal respiratory effort Auscultation: clear to auscultation bilaterally, no crackles, no rales, no rhonchi and no wheezes Cardio Rate: regular rate Rhythm: regular rhythm Skin General skin exam: no rashes or lesions noted Neuro General: patient oriented x3 Gait exam (Neuro): Normal gait present Extrem General: Yes normal to inspection, Yes full ROM and No edema Psych Affect: normal affect Attitude: cooperative Insight: Good insight present (Psych) Judgement: Good judgement present (Psych) Coding Level of Care Code Est Pt Level 3 (60358) Diagnoses Generalized anxiety disorder F41.1 Obesity E66.9 Routine Papanicolaou smear Z12.4 Assessment & Plan Assessment & Plan (1) Generalized anxiety disorder: Comment: Deonna Baptiste Code(s): F41.1 - Generalized anxiety disorder Category: Medical Plan: Feeling generally well continue to follow with counselor. (2) Obesity: Code(s): E66.9 - Obesity, unspecified Category: Medical Plan: Healthy diet and regular exercise is encouraged. Increased Wegovy to 1 mg. (3) Routine Papanicolaou smear: Code(s): Z12.4 - Encounter for screening for malignant neoplasm of cervix Category: Medical Plan: Referral placed to gynecology. Plan This note was constructed using voice recognition software. While every effort has been made to ensure accuracy and store assistant, still areas may have been included sometimes these areas may affect the content or meeting of the given symptoms. Total time spent caring for the patient today was 20 minutes. This includes time spent before the visit reviewing the chart, time spent during the visit, and time spent after the visit and documentation. Orders: Referrals POLICE JUSTICE Referral Z12.4 - Encounter for screening for malignant neoplasm of cervix, Z87.42 - Personal history of other diseases of the female genital tract Medications: New semaglutide (weight loss) (Wegovy) administer weeks 9 through 12 of therapy 1 mg (0.5 mL) subcut QWEEK 2 mL 0RF Discontinued semaglutide (weight loss) (Wegovy) administer weeks 5 through 8 of therapy Discontinued Reason: Patient no longer taking 0.5 mg (0.5 mL) subcut QWEEK 2 mL 0RF semaglutide (weight loss) (Wegovy) administer weeks 1 through 4 of therapy Discontinued Reason: Patient no longer taking 0.25 mg (0.5 mL) subcut QWEEK 2 mL 0RF
== END 2024-08-31 08:50 | disposition home or self-care (01) ==
LOC: HO.HMCH 08:30
DX: F41.1 Generalized anxiety disorder (principal); E66.9 Obesity, unspecified; Z68.41 Body mass index [BMI] 40.0-44.9, adult

== ENCOUNTER → 2024-08-31 08:29 | Outpatient (BNVA) | payer OTHER, SELFPAY | DX: F41.1 Generalized anxiety disorder (principal); E66.9 Obesity, unspecified | CPT/HCPCS: 99212 ==

== ENCOUNTER 2024-11-06 14:05 | Outpatient (AMB) | payer OTHER, SELFPAY ==
--- NOTE | 2024-11-06 14:05 | MHC.PC.OV ---
Vital Signs 11/06/24 14:06 Height 5 ft 5 in Weight 258 lb BMI 42.9 Intake Visit Reasons: weight loss f/u Intake Note: Patient is here to follow up on Weight loss. Last weight was 258lb 5 days ago. Ekg Manager Required: No Cash Clerk: Not Required per policy Accompanied by: Self / Same As Patient Allergies No Known Allergies Allergy (Verified 11/06/24 14:06) Medication List - Last Reconciled 11/06/24 by Charmaine Kauffman PA-C cholecalciferol (vitamin D3) 25 mcg PO DAILY medroxyprogesterone mg PO semaglutide (weight loss) (Wegovy) 1.7 mg (0.75 mL) subcut QWEEK sennosides (senna) 8.6 mg PO BEDTIME PRN Tobacco use date assessed: 11/06/24 Dental Screening Dental Screen Date: 11/06/24 Did you have a dental visit in the last 12 months?: Yes Did you have a dental problem in the last 6 months where you did not have access to dental care?: No Was dental information given to patient?: Patient has dentist HPI weight loss f/u HPI Details 24-year-old female with past medical history of generalized anxiety disorder coming to the office for follow up on weight loss.? Wegovy was increased to 1 mg at last visit. Patient presents today via TeleHealth she has lost about 5 lb since her most recent dose increase. She feels the injection well work for her cravings for about 3 days before it stops working. She has been tolerating the medication well and denies any side effects at this time. [facility] Medical History Obesity Generalized anxiety disorder No known health problems Surgical History No pertinent past surgical history Family History Mother Hypertension Leukemia Maternal Grandmother Stroke Social History Housing: Apartment Alcohol intake: current Alcohol intake frequency: holidays/special occasions only Patient Tobacco Use Status: Former Tobacco user Tobacco use type: Cigarette e-Cigarette/Vaping Use: Never Used Second Hand Smoke Exposure: No service: No Current occupational status: employed Current occupational exposures/hazards: No Cognitive needs: No Hearing needs: No Vision needs: Yes Questionnaire PHQ-9 Over the last 2 weeks, how often have you been bothered by any of the following problems? 1. Little interest or pleasure in doing things: not at all 2. Feeling down, depressed, or hopeless: not at all 3. Trouble falling or staying asleep, or sleeping too much: not at all 4. Feeling tired or having little energy: not at all 5. Poor appetite or overeating: not at all 6. Feeling bad about yourself - or that you are a failure or have let yourself or your family down: not at all 7. Trouble concentrating on things, such as reading the newspaper or watching television: not at all 8. Moving or speaking so slowly that other people could have noticed. Or the opposite - being so fidgety or restless that you have been moving around a lot more than usual: not at all 9. Thoughts that you would be better off or of hurting yourself in some way: not at all Total score: 0 Depression Screening Interpretation: Negative Depression Screening Done: Yes Source: Developed by Drs. William Nixon, Leonie Shaw, Jw Méndez and colleagues, with an educational daxa from [employer]. Thrive Questionnaire Date Thrive assessed: 11/06/24 I am a: Patient What is your living situation today?: I have a steady place to live Within the past 12 months, did the food you bought not last and you didn't have the money to get more?: Never true Within the past 12 months, did you worry whether your food would run out before you got money to buy more?: Never true Do you have trouble paying for medicines?: No Do you have trouble getting transportation to medical appointments?: No Do you have trouble paying your heating and electricity bill?: No Do you have trouble taking care of your child, family member or friend?: No Do you have trouble with day-to-day activities such as bathing, preparing meals, shopping, managing finances, etc.?: No Are you currently unemployed and looking for a job?: No Are you interested in more education?: No Please select the resources that you would like help with: None Currently or been in a relationship where the following occur: No concerns reported THRIVE Score: 0 AUDIT C Alcohol Use Questionnaire (AUDIT-C) 1. How often do you have a drink containing alcohol?: Never Total Score: 0 TONNY-7 AMB Questionnaire TONNY-7 Date TONNY - 7 assessed: 11/06/24 Feeling nervous, anxious, or on edge: 0 = Not at all Not being able to stop or control worryin = Not at all Worrying too much about different things: 0 = Not at all Trouble relaxin = Not at all Being so restless that it is hard to sit still: 0 = Not at all Becoming easily annoyed or irritable: 0 = Not at all Feeling afraid as if something awful might happen: 0 = Not at all Total TONNY-7 score (0-4 normal; 5-9 mild; 10-14 moderate; 15-21 severe): 0 Source: Developed by Drs. William Nixon, Leonie Shaw, Jw Méndez and colleagues, with an educational daxa from [employer]. Review of Systems Const Denies body aches, Denies chills, Denies fever(s), Denies headache(s) and Denies poor appetite Eyes Reports no additional complaints ENT Denies dizziness and Denies headache(s) Card Denies chest pain, Denies syncope, Denies lightheadedness and Denies dyspnea Resp Denies cough and Denies dyspnea GI Denies abdominal pain, Denies constipation, Denies diarrhea, Denies nausea and Denies vomiting Reports no additional complaints Musc Reports no additional complaints and Denies abnormal gait Skin/Breast Reports system reviewed and no additional complaints, except as documented Neuro Denies abnormal gait, Denies dizziness, Denies syncope and Denies headache(s) Psych Reports no additional complaints Physical exam (Primary Care) Vital Signs: Physical exam not performed due to nature of telehealth visit BMI result Body Mass Index 42.9 Tobacco/Smoking Status: Tobacco use Status Tobacco use date assessed 11/06/24 11/06/24 14:08 Patient Tobacco Use Status Former Tobacco user 11/06/24 14:08 Tobacco use type Cigarette 11/06/24 14:08 e-Cigarette/Vaping Use Never Used 11/06/24 14:08 PHQ-9: PHQ-9 Score PHQ-9: Total score 0 11/06/24 14:08 Depression Screening Interpretation: Negative Thrive Assessment: Date of Thrive Assessment Date Thrive assessed 11/06/24 11/06/24 14:08 Currently or been in a relationship where the following occur: No concerns reported Telehealth Telehealth Telehealth Platform: Telephone Location of provider rendering services: practice address Location of patient: address on file Patient Identification confirmed using: Name, : Yes Telehealth method: voice only Patient verbally consented to treatment: Yes Patient verbally consented to billing insurance company: Yes Patient informed of any privacy concerns related to visit: Yes Coding Level of Care Code Tele Est Pt Level 3 (29244) Diagnoses Obesity E66.9 Constipation K59.00 Assessment & Plan Assessment & Plan (1) Obesity: Code(s): E66.9 - Obesity, unspecified Category: Medical Plan: Healthy diet and regular exercise is encouraged. Reported 5 lb weight loss since starting the most recent increase dose. We will increase Wegovy further to 2.4 mg which I informed the patient is the top dose. If she does not get good benefit from this medication we can try switching to Zepbound however I did inform the patient that she would have to start the lowest dose and work her way up. Patient understands and we will try the Wegovy for 1 is 2 months. Patient has tolerated the medication well and blood work is within normal limits. (2) Constipation: Code(s): K59.00 - Constipation, unspecified Category: Medical Plan: Currently using senna and denies any worsening constipation or diarrhea. Plan This note was constructed using voice recognition software. While every effort has been made to ensure accuracy and heating element builder, still areas may have been included sometimes these areas may affect the content or meeting of the given symptoms. Total time spent caring for the patient today was 20 minutes. This includes time spent before the visit reviewing the chart, time spent during the visit, and time spent after the visit and documentation. Medications: New semaglutide (weight loss) (Wegovy) 2.4 mg (0.75 mL) subcut QWEEK 3 mL 0RF Discontinued semaglutide (weight loss) (Wegovy) administer weeks 13 through 16 of therapy Discontinued Reason: Patient no longer taking 1.7 mg (0.75 mL) subcut QWEEK 3 mL 0RF
[2024-11-06 14:06] VITALS: BMI 42.9
== END 2024-11-06 14:29 | disposition home or self-care (01) ==
LOC: HO.HMCH 14:05
DX: K59.00 Constipation, unspecified (principal); E66.9 Obesity, unspecified; Z68.41 Body mass index [BMI] 40.0-44.9, adult

== ENCOUNTER 2025-03-21 13:46 | Outpatient (AMB) | payer OTHER, SELFPAY ==
--- NOTE | 2025-03-21 13:55 | A.OFFVIS_ITS ---
Vital Signs 03/21/25 13:58 Height 5 ft 5 in Weight 252 lb BMI 41.9 BP 104/68 Intake Visit Reasons: New patient Annual Intake Note: Per patient no concerns. Last pap smear 2 years ago, normal hx. Stick Inserter: Stick Inserter Present ([place]) Accompanied by: Self / Same As Patient Allergies No Known Allergies Allergy (Verified 03/21/25 14:02) Medication List - Last Reconciled 03/21/25 by Erin Newton CNM cholecalciferol (vitamin D3) 25 mcg PO DAILY sennosides (senna) 8.6 mg PO BEDTIME PRN Is last menstrual period known: Yes Last menstrual period: 03/10/25 Post menopausal: No Patient : No HPI HPI New patient Annual: Details: Patient is here is a new ob/gyn annual exam she has a new primary care provider that she has seen she was on Wegovy and it was helping a little bit with weight loss but then it was discontinued insurance. Now she has been to the weight management program and she has an appointment coming up on April 04. She says her sister had weight loss surgery lost weight after. she herself has been trying to get for a long time. She has always been overweight but she gained a whole lot of weight after going on control at age 14. She also always had irregular periods. The control she was on this Depo-Provera for few years from [age]. She has not been on it since then. Around the beginning of the pandemic she was having problems. Ended up being seen emergency then from there got referred to [facility] obgyn hospitalist physician and there were no appointments [place] so they referred her to the [place] office and she stay there until somewhat recently she says they worked her up and did lots of tests and ultrasounds for PCOS her she did not have they did put her on hydroxy Provera 10 mg tablets to take for certain days in a month to bring on a period every month she says they use that because she is trying to get but she could not get she still would like to get right now she is not interested control. [facility] Medical History Obesity Generalized anxiety disorder No known health problems Surgical History No pertinent past surgical history Family History Mother Hypertension Leukemia Maternal Grandmother Stroke Social History Housing: Apartment Alcohol intake: current Alcohol intake frequency: holidays/special occasions only Patient Tobacco Use Status: Former Tobacco user Tobacco use type: Cigarette e-Cigarette/Vaping Use: Never Used Second Hand Smoke Exposure: No service: No Current occupational status: employed Current occupational exposures/hazards: No Cognitive needs: No Hearing needs: No Vision needs: Yes Female Reproductive History Menstrual Age of Menarche: 11 Duration of menses: 3-5 days Date of last menstrual period: 03/10/25 control method: none Total pregnancies: 0 Physical Exam Vital Signs: Last Vital Signs BP 104/68 03/21/25 13:58 BMI result Body Mass Index 41.9 Const General: healthy appearing, comfortable, no acute distress, well developed and alert Nutritional Appearance: average body habitus and obese Orientation/consciousness: patient oriented x3 Limitations: no limitations HEENT Head: Yes normocephalic Neck Neck: Yes normal visual inspection Chest Chest palpation & inspection: normal inspection of the chest Breast/axilla inspection: normal inspection of the breasts and normal inspection of the axillae Breast/axilla palpation: normal palpation of the breasts and normal palpation of the axillae Resp Effort & Inspection: normal respiratory effort GI Inspection: Yes normal to inspection, No Abdominal wall edema and No distended Palpation (GI): Soft to palpation and nontender Other: External vulva within normal limits vagina is pink and moist thin whitish discharge present cervix nulliparous pink smooth healthy appearing bled with Cytobrush uterus small midposition difficult feel contours completely given adipose but mobile and nontender adnexa nontender very good tone w Kegel. General: Yes bladder normal to palpation External Female Exam: normal external appearance and normal appearance of the urethra Speculum Exam - Vagina: normal appearance of the vagina, normal palpation and normal vaginal discharge Speculum Exam - Cervix: normal appearance of the cervix, normal palpation and nontender Bimanual exam- vagina & uterus: normal bimanual exam, normal palpation, uterine size normal, bladder normal to palpation, consistency normal, normal palpation, uterine mobility normal, uterine shape normal, No Cervical tenderness present, non-tender and no cervical motion tenderness Bimanual Exam- Adnexa, other: normal adnexae, no masses, normal and No adnexal tenderness Neuro General: patient oriented x3 Assessment & Plan Assessment & Plan (1) History of irregular menstrual bleeding: Comment: Managed in past with cyclic medrdoxyProvera 10 mg tablets. Has some hirsute isn't she manages and hair loss at the top of her head, consistent with PCOS says she did not get diagnosed at [facility]. Code(s): Z87.42 - Personal history of other diseases of the female genital tract Category: Medical (2) Routine Papanicolaou smear: Code(s): Z12.4 - Encounter for screening for malignant neoplasm of cervix Category: Medical (3) Morbid obesity with BMI of 40.0-44.9, adult: Code(s): E66.01 - Morbid (severe) obesity due to excess calories; Z68.41 - Body mass index [BMI] 40.0-44.9, adult Category: Medical Plan -----Discussed in this visit the following: healthy balanced diet, regular and consistent exercise, getting recommended health screens, doing the best she can for her particular health concerns, kegel exercises, pap smear screening and followup recommendations, mammography screening and SBE, normal changes in cycles in her life stage--- . Pap smear done today is not really certain when her last Pap smear was done. Testing for STIs done as 1st time seeing her and she is sexually active. Discussed her long history of irregular cycles she does keep track of her periods which is very good they are somewhat consistent recently though she did skip a whole month at the beginning of the year and bled10 days the following month Patient had been treated with Medrol Oxy Provera cyclically which did help regularize her cycles she did not want to be on control because she was trying to get and still is trying. Discussed the possibility that she may in fact have had PCOS but it is a syndrome rather than cause of the obesity and the other symptoms she is having. Everything is related and dealing with the weight issue primary ways most impor tant thing for health discussed the often fertility will improve as she loses the weight discussed that if she starting with the weight management program often times they do request that she void 1st time while they are helping her the weight loss also discussed the importance of learning healthy eating habits so that she does not gain any weight back she will be following up with them very soon and also with a primary care provider. I offered her testing for STIs and she accepted. Discussed that if she did get she need to start care at [facility]. Suggested taking multivitamin with folic acid as she is open to at this time. Orders: Orders Hepatitis B Surface Antigen Today Z11.3 - Encounter for screening for infections with a predominantly sexual mode of transmission, Z12.4 - Encounter for screening for malignant neoplasm of cervix, Z31.9 - Encounter for procreative management, unspecified, Z87.42 - Personal history of other diseases of the female genital tract Hepatitis C Antibody Today Z11.3 - Encounter for screening for infections with a predominantly sexual mode of transmission, Z12.4 - Encounter for screening for malignant neoplasm of cervix, Z31.9 - Encounter for procreative management, unspecified, Z87.42 - Personal history of other diseases of the female genital tract HIV Ab/Ag Today Z11.3 - Encounter for screening for infections with a predominantly sexual mode of transmission, Z12.4 - Encounter for screening for malignant neoplasm of cervix, Z31.9 - Encounter for procreative management, unspecified, Z87.42 - Personal history of other diseases of the female genital tract Syphilis Screen Today Z11.3 - Encounter for screening for infections with a predominantly sexual mode of transmission, Z12.4 - Encounter for screening for malignant neoplasm of cervix, Z31.9 - Encounter for procreative management, unspecified, Z87.42 - Personal history of other diseases of the female genital tract Coding Level of Care Code New Pt Prev Care 18-39yr([id number] Diagnoses History of irregular menstrual bleeding Z87.42 Routine Papanicolaou smear Z12.4 Morbid obesity with BMI of 40.0-44.9, adult E66.01; Z68.41
[2025-03-21 13:58] VITALS: BP 104/68; BMI 41.9
== END 2025-03-21 15:00 | disposition home or self-care (01) ==
LOC: HO.HWSM 13:46
PROVIDERS: Visit Provider Advanced Practice Midwife
DX: Z01.419 Encounter for gynecological examination (general) (routine) without abnormal findings (principal); E66.01 Morbid (severe) obesity due to excess calories; Z68.41 Body mass index [BMI] 40.0-44.9, adult
CPT/HCPCS: 99385; 99459

== ENCOUNTER 2025-03-21 13:46 | Outpatient (REF) | payer OTHER, SELFPAY ==
[2025-03-22 06:47] LABS: CT PCR NOT DETECTED (Not Detect.); NG PCR NOT DETECTED (Not Detect.)
[2025-03-22 11:44] LABS: Bacterial Vaginosis PCR POSITIVE (Negative); Candida Group PCR NOT DETECTED (Not Detect); Candida glab krusei PCR NOT DETECTED (Not Detect); Trichomonas vaginalis PCR NOT DETECTED (Not Detect)
[2025-03-28 07:56] LABS: HPV Genotype 16 Negative (Negative); HPV Genotype 18 Negative (Negative); HPV High Risk Negative (Negative)
== END 2025-03-21 13:47 | disposition home or self-care (01) ==
LOC: HO.LNP 13:46
PROVIDERS: Visit Provider Advanced Practice Midwife
DX: Z12.4 Encounter for screening for malignant neoplasm of cervix (principal); Z11.3 Encounter for screening for infections with a predominantly sexual mode of transmission; E66.01 Morbid (severe) obesity due to excess calories; F41.1 Generalized anxiety disorder; Z68.41 Body mass index [BMI] 40.0-44.9, adult; Z87.42 Personal history of other diseases of the female genital tract
CPT/HCPCS: 81515; 87491; 87591; 87626; 88175; 99385; 99459

== ENCOUNTER 2025-06-18 09:28 | Outpatient (AMB) | payer OTHER, SELFPAY ==
--- NOTE | 2025-06-18 11:31 | MHC.OFFVISWM ---
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: Details: Start time: 11.28m, End time: 12.01pm ?I spent 28 minutes speaking with the patient on the phone plus an additional 5 minutes reviewing and updating records for a total of 33 minutes HPI Comments Details: Previous weight loss efforts: Wegovy up to 2.4mg/wk: lost 10 lbs Wakes up: 6am, Sleeps: 12am Breakfast: skips Lunch: 1pm (rice, chicken, port, potatoes) Dinner: 5pm (same as lunch) Snacks: 7-8pm (cereal or ice cream) Exercise: none Beverages: Coffee/Tea: none, soda: rarely, juice: none, ETOH: none PFSH Medical History Obesity Generalized anxiety disorder No known health problems Surgical History No pertinent past surgical history Family History Mother Hypertension Leukemia Maternal Grandmother Stroke Social History (Updated 04/04/25 @ 11:23 by Carla Fregoso CMA) Housing: Apartment Alcohol intake: current Alcohol intake frequency: holidays/special occasions only Patient Tobacco Use Status: Former Tobacco user Tobacco use type: Cigarette e-Cigarette/Vaping Use: Never Used Second Hand Smoke Exposure: No service: No Current occupational status: employed Current occupational exposures/hazards: No Cognitive needs: No Hearing needs: No Vision needs: Yes Female Reproductive History Menstrual Age of Menarche: 11 Telehealth Telehealth Telehealth Platform: Telephone Location of provider rendering services: practice address Location of patient: address on file Patient Identification confirmed using: Name, : Yes Telehealth method: voice only Patient verbally consented to treatment: Yes Patient verbally consented to billing insurance company: Yes Patient informed of any privacy concerns related to visit: Yes Minutes spent on Phone/Video with Pt.: 33 Assessment & Plan Assessment & Plan (1) Morbid obesity with BMI of 40.0-44.9, adult: Code(s): E66.01 - Morbid (severe) obesity due to excess calories; Z68.41 - Body mass index [BMI] 40.0-44.9, adult Category: Medical Plan: 1.? Plan for lap sleeve gastrectomy. If diaphragmatic or ventral hernias are present at time of surgery, these will be repaired laparoscopically as well. I emphasized the importance of close follow-up, adherence to instructions and good communication. The surgery does not replace the need to change your lifestlyle which is the cause of the obesity problem. The surgery provides the motivation to try again to change your lifestyle, it reduces the appetite and make the transition to a better lifestyle easier and doubles the amount of weight you would lose compared to doing the lifestyle change without the surgery. You will need to be on a liquid diet with protein shakes for 2 weeks before surgery to maximize weight loss and boost your nutritional status to recover better from surgery and also for the first two weeks after surgery to let the stomach heal before we introduce other foods. After the first 2 weeks we will introduce protein bars and soft foods like scrambled eggs, cottage cheese and yogurt and after the 6th week will introduce meat, fish and cooked vegetables in small amounts. Over time you should be able to eat everything in small amounts. Side effects like nausea, vomiting, heartburn or abdominal pain are not common in the practice unless you are not following in the practice. This operation requires lifetime commitment to following in our practice and communication with me. You will much less weight and experience side effects if you don?t communicate or not following in the practice. Complications are rare and in our practice is about 1/10 of the national average. However, you can develop bleeding that may require transfusion (hasn?t happened for year in the practice), you may from complications (we did not have any deaths in the practice) and infections. Infections are usually a result of breakdown in communication or not understanding or following directions correctly. They are difficult to treat, they can happen during the first 6 weeks, they may require to be in the hospital for weeks or even months, not being able to eat by mouth and you may have drains and surgeries to try and correct the issue. Other risks and complications include possible conversion to an open procedure, leaks, small bowel obstruction, blood clots, cardiac, or pulmonary complications, as fpc complications such as ulcers, insufficient weight loss and vitamin deficiencies. 2. Nutritional counseling. Start with one CELEBRATE REBUILD protein (buy at [facility] [address] [facility]) shakes (HALF scoop in 8oz low fat unsweetened almond milk) at 7am-9am, 1 protein bar (CELEBRATE protein bars, buy at [facility] [address] [facility]) at 10am-12pm, another CELEBRATE REBUILD protein shake (HALF scoop in 8oz low fat unsweetened almond milk) at 1pm-3pm, another Celebrate bar at 4-6pm, dinner at 7pm (10 forks of protein and 10 forks of salad/vegetables) AND one more protein bar after dinner at 9pm-11pm. So you do 2 protein shakes, 3 protein bars and one meal per day. Meal to include lean meat (beef, fish, pork, turkey, chicken), or pakistani yogurt, or egg whites, or beans with a salad with olive oil and fruits (berries, pears, apples, kiwi). Avoid salt, breads, potatoes, rice, pasta, desserts. 3. Each shake would be drunk slowly, like coffee in a period of 2 hours. 4. Cut each bar in 4 pieces and eat each piece in 30min ?to make each bar last 2 hours. 5. I emphasized the importance of measuring accurately the food portion and measure it when serving the food in plate 6. The meal portions include 10 full-size forks of meat and 10 full-size forks of salad. You always eat the meat portion but you can replace up to 5 forks for salad/vegetables with rice, potatoes or pasta, or a fruit ?if you like. The less you do it the better weight loss will be. 7. One full-size fork is what it can be scooped on the fork without falling aside and not what can be bit with the fork. Use regular forks like those you find in a typical restaurant. 8.? Please buy the body composition scale we discussed and send me weight measurements as soon as possible and then once a week. Always include your diet and exercise plan. 9. The best choice would be to purchase a stationary bike at home that can track calories. If you get one, please start stationary bike at a resistance level of 2.0 Increase level by 1.0 every 3 min to a max level of 8.0. Stay at this level for 3 min and then return to level 2.0 and repeat same steps until 300 calories are burned. Goal is to burn 2000 calories per week on exercise 10.?It is important of avoiding and for at least 18 months postoperatively and has been discussed at the infosession. 11. Goal is to lose at least 1.5-2lbs per week 12. Goal to lose 10% of your weight before surgery, which is about 25lbs. Ultimate weight goal: 225lbs before surgery 13. Please follow the diet plan exactly without any change. If you don't like something about the plan or you feel hungry you need to communicate with me so I can help you revise the plan. You should not change the plan yourself 14. To be scheduled for EGD to assess the stomach's anatomy. The possibility of biopsies was discussed. Patient needs to avoid use of NSAIDs and aspirin for 1 week prior to EGD. You must be on liquids only the day before your endoscopy. Risks of perforation and bleeding was discussed with the patient. This will be an outpatient procedure with IV sedation. 15. Please do the following test: Check your heart rate at rest (at your sleep). Walk for exactly one mile distance as fast as you can and check your heart rate again as soon as you complete the mile walk. Text me the heart rate at rest and after the walk and the time in minutes and seconds that took you to complete the mile walk. You can use your smartphone's stopwatch to track accurately the time it took to walk the mile.
[2025-06-18 11:36] VITALS: BMI 41.5
== END 2025-06-18 12:01 | disposition home or self-care (01) ==
LOC: HO.HBS 09:28
PROVIDERS: Visit Provider Surgery
DX: E66.01 Morbid (severe) obesity due to excess calories (principal); Z68.41 Body mass index [BMI] 40.0-44.9, adult
CPT/HCPCS: 98009

== ENCOUNTER 2025-08-02 20:34 | Emergency (ER) | payer OTHER, SELFPAY ==
--- NOTE | ~2025-08-02 | US_ITS ---
CLINICAL HISTORY: right pelbiv pain US OB 1st Trimester transabdominal and transvaginal with Doppler Comparison: None provided Findings: No intrauterine or ectopic gestation. Small amount of endocervical fluid. Likely physiologic. Physiologic amount of free fluid in the pelvis. Small nabothian cysts. Right ovary 3.3 x 4 x 2.3 cm. Left ovary 1.9 x 3.8 x 2.1 cm. Normal color Doppler with arterial/venous spectral tracing of both ovaries. IMPRESSION: 1. No intrauterine or ectopic . Recommend continued beta HCG level follow-up with ultrasound as needed. 2. No evidence of ovarian torsion. This document has been electronically signed by: Desiree Woo MD on 08/03/2025 03:08:25
[2025-08-02 20:36] VITALS: BP 160/76; PULSE 90; RESP 20; TEMP 36.8; O2SAT 99; BMI 43.8
[2025-08-02 23:03] LABS: MANUAL DIFF FLAG NO
[2025-08-02 23:05] LABS: Hematocrit 38.4 % (37.0-47.0); Hemoglobin 12.8 g/dl (12.0-16.0); Imm Gran Abs Auto 0.04 X10*3/uL (0.00-0.03); Imm Gran Pct Auto 0.3 % (0.0-0.4); Lymphocytes Absolute Auto 2.7 X10*3/uL (1.2-4.9); Mean Corpuscular HGB Conc 33.3 g/dl (31.0-35.0); Mean Corpuscular Hemoglobin 26.9 pg (27.0-33.0); Mean Corpuscular Volume 80.7 fL (80.0-98.0); NRBC Abs Auto 0.000 X10*3/uL (0.0-0.012); NRBC Pct Auto 0.0 /100WBC (0.0-0.2); Platelet Count 401 X10*3/uL (160-400); Red Blood Count 4.76 X10*6/uL (4.20-5.50); White Blood Count 12.8 X10*3/uL (4.8-10.8)
[2025-08-02 23:05] LABS: Appearance Urine Clear; Glucose Urine UA Negative (Negative); PH 5.5 (5.0-9.0); Specific Gravity - Urine >= 1.030 (1.005-1.025)
[2025-08-02 23:30] LABS: Alanine Aminotransferase 23 U/L (0-31); Albumin Level 4.5 g/dL (3.5-5.0); Alkaline Phosphatase 102 U/L (39-117); Anion Gap 12 (12-20); Aspartate Amino Transferase 19 U/L (5-31); Blood Urea Nitrogen 8 mg/dL (9-16); Calcium 9.3 mg/dL (8.4-10.2); Carbon Dioxide 24 mmol/L (22-29); Chloride 108 mmol/L (96-108); Creatinine Clr Calc Pharmacy 195.1; Estimated Glomerular Filt Rate > 60; Potassium 3.5 mmol/L (3.3-5.1); Sodium 140 mmol/L (135-145); Total Protein 7.6 g/dL (6.5-8.0)
--- NOTE | 2025-08-03 01:31 | ED_ITS ---
HPI - General Adult General Chief complaint: Abdominal Pain Stated complaint: pelvic pain Time Seen by Provider: 08/03/25 00:45 Source: patient, RN notes reviewed and old records reviewed Mode of arrival: ambulatory Limitations: no limitations History of Present Illness ED Provider: Gaby LOVETT narrative: 24-year-old female with past medical history significant for obesity, anxiety presents for evaluation of pelvic pain and vaginal bleeding. The patient reports that her last menstrual cycle was starting on July 08 and lasted about 2-1/2 weeks. She does report that her menstrual cycle is frequently irregular as it was only 1 day long in June She states that she did have some pelvic cramping and vaginal bleeding that started on Wednesday and persistent until today. She developed severe pain yesterday that seemed to be worsening. She states in his mostly in the right side She is not on any exception. She reports that she had never been She denies any previous abdominal surgeries Her pain is 8/10 and worse if she is lying flat or moving around. She is most comfortable sitting up Denies any urinary complaints pain She denies any abnormal vaginal discharge in she is not concerned for STIs Related Data Previous Rx's ?Medication ?Instructions ?Recorded sennosides 8.6 mg capsule (senna) 8.6 mg PO BEDTIME MN N constipation 06/14/24 #30 caps cholecalciferol (vitamin D3) 25 25 mcg PO DAILY #30 ca ps 10/09/24 mcg (1,000 unit) capsule acetaminophen 500 mg capsule 1,000 mg (2 x 500 mg) PO Q8H PRN 08/03/25 fever or pain #14 caps ibuprofen 400 mg tablet 400 mg PO Q6H PRN pain #14 t abs 08/03/25 metronidazole 500 mg tablet 500 mg PO BID 7 days #14 t abs 08/05/25 Allergies Allergy/AdvReac Type Severity Reaction Status Date / Time No Known Allergies Allergy Verified 08/02/25 20:38 Review of Systems 2 Constitutional: Constitutional: Denies body ache(s), Denies chills and Denies fever(s) ENT: Denies vertigo and Denies dizziness Cardiovascular: Cardiovascular: Denies chest pain and Denies dyspnea on exertion Respiratory: Respiratory: Denies cough and Denies dyspnea on exertion Gastrointestinal: Gastrointestinal: Reports abdominal pain, Denies nausea and Denies vomiting Genitourinary: Genitourinary: Reports menorrhagia and Reports pelvic pain Musculoskeletal: Musculoskeletal: Denies back pain Integumentary/Breasts: Skin/Breast: Denies rash Neurologic: Denies vertigo and Denies dizziness Psychiatric: Psychiatric: Denies anxiety [facility] Past Medical History Medical History (Updated 08/04/25 @ 00:01 by Maryana Hernandez) Obesity Generalized anxiety disorder Surgical History No pertinent past surgical history Family History Family History Mother Hypertension Leukemia Maternal Grandmother Stroke Social History Social History (Updated 04/04/25 @ 11:23 by Carla Fregoso CMA) Housing: Apartment Alcohol intake: current Alcohol intake frequency: holidays/special occasions only Patient Tobacco Use Status: Former Tobacco user Tobacco use type: Cigarette e-Cigarette/Vaping Use: Never Used Second Hand Smoke Exposure: No service: No Current occupational status: employed Current occupational exposures/hazards: No Cognitive needs: No Hearing needs: No Vision needs: Yes Physical Exam ED Vital Signs: Vital Signs - 24 hr 08/02/25 20:36 08/03/25 02:43 08/03/25 03:06 Temperature 98.2 F Pulse Rate 90 98 108 H Respiratory Rate 20 18 18 Blood Pressure 160/76 H 123/86 128/84 Pulse Oximetry 99 100 96 Oxygen Delivery Method Room Air Room Air Room Air 08/03/25 05:28 Temperature 98.6 F Pulse Rate 100 Respiratory Rate 22 H Blood Pressure 120/74 Pulse Oximetry 98 Oxygen Delivery Method Room Air BMI result Body Mass Index 43.8 Const General: healthy appearing, comfortable, no acute distress, alert and awake Nutritional Appearance: well nourished Orientation/consciousness: patient oriented x3 HENMT Head: Yes normocephalic and Yes atraumatic Eyes Eyelids: Yes eyelids normal Conjunctivae: conjunctivae normal Sclerae: sclerae normal Corneas: corneas normal Pupils: Equal, round and reactive pupils present EOM: EOMs intact bilaterally Neck Neck: Yes full ROM Resp Effort & Inspection: normal respiratory effort, able to speak in complete sentences and not labored GI Inspection: No distended Palpation (GI): Soft to palpation, not firm and not rigid External Female Exam: normal external appearance and No erythema Speculum Exam - Vagina: normal appearance of the vagina and not erythematous Speculum Exam - Cervix: normal appearance of the cervix, Cervical os closed and Other cervical findings present (Small amount of blood within the vaginal vault) Bimanual exam- vagina & uterus: normal bimanual exam Bimanual Exam- Adnexa, other: normal adnexae, no masses and no tenderness Skin General skin exam: elasticity normal Neuro General: patient oriented x3 Cranial nerves: Yes Equal, round and reactive pupils present and Yes Bilaterally intact EOM present Cognition (Neuro): normal cognition Extrem Other: Moving all extremities well without any obvious deformities Course Reevaluation(s) Reevaluation #1: Patient's workup shows with a hCG of 850, ultrasound does not confirm intrauterine or ectopic . I discussed with Doctor Celia, who recommends keeping the patient with a repeat hCG at 6:30 a.m. and reconsulting him. This will be signed out to the night staff. I did have an ABO Rh typing that needs to be ordered, if the patient has an hCG that is trending downward and concerning for spontaneous will likely need to be considered for RhoGAM Time: 03:14 Reevaluation #2: Lloyd: This patient was signed out to me at change of shift pending the results of a repeat beta hCG test. The patient is a 24-year-old female who had presented with symptoms of lower abdominal discomfort and vaginal bleeding that has been present for about 4 days. She was found to be . This was unexpected. The patient has no history of previous pregnancies. She says that she has a history of very irregular menses. She says that she has been hoping to get at some point but had not been expecting to be because she had significant vaginal bleeding only 2 weeks ago. At that time she had bleeding for over a week. Her beta hCG was 850 yesterday evening. A pelvic ultrasound showed no sign of intrauterine or ectopic or other signs of . The case has been discussed with Dr. Celia REARDON who recommended a repeat beta HCG this morning. The repeat beta-hCG this morning has come back at 677. With this information Dr. Yang recommends that the patient be discharged and returned to the emergency room in 2 days for repeat beta-hCG testing on Wednesday. The patient will be given a work note for the weekend. She will be given prescriptions for ibuprofen and acetaminophen. She will be advised that if she has worsening symptoms before Wednesday to return to the emergency room. Otherwise she normally receives her medical care and gynecological care at the [facility]. She is advised to contact them for follow up next week as well. Time: 07:45 Reevaluation #3: Patient's vaginitis panel came back positive for bacterial vaginosis. Seven day course of 500 mg metronidazole b.i.d. sent to the pharmacy. I attempted to call patient however she did not answer, voicemail left. Time: 18:12 Medications Administered Discontinued Medications Generic Name Dose Route Start Last Admin Trade Name Art PRN Reason Stop Dose Admin Acetaminophen 975 mg 08/03/25 04:01 08/03/25 04:05 Acetaminophen 325 Mg Tablet PO 08/03/25 04:02 975 mg ONCE ONE Administration Acetaminophen 975 mg 08/03/25 07:31 08/03/25 07:51 Acetaminophen 325 Mg Tablet PO 08/03/25 07:32 975 mg ONCE ONE Administration Ketorolac Tromethamine 30 mg 08/03/25 07:31 08/03/25 07:51 Ketorolac Tromethamine 30 Mg/Ml Vial IM 08/03/25 07:32 30 mg ONCE ONE Administration Medical Decision Making Medical Decision Making [facility] Narrative: 24-year-old female presents for evaluation of pelvic pain, mostly right lower abdomen. She also complains of vaginal bleeding over last few days. She reports her last menstrual cycle was from 07/08/2025 through 07/24/2025. She has a history of irregular menstrual cycles. Of note, the patient's serum hCG was 850, the patient was not aware that she was . This would be her 1st , she is . At this time we are quite concerned for an ectopic given her right pelvic pain with vaginal bleeding and low serum hCG. A pelvic exam was performed that shows no adnexal mass on palpation and no significant adnexal tenderness, but we will still obtain a pelvic ultrasound to help rule out ectopic . The patient has no GI symptoms to suggest a GI cause of her abdominal pain Differential Diagnosis Differential Diagnoses: The differential diagnosis associated with the presentation includes Pelvic pain Ectopic Ovarian torsion less likely Acute appendicitis less likely Lab Data [facility] Lab Attestation statement: I reviewed the patient's lab results. Mild leukocytosis to 12.8, no significant anemia. Platelet count is essentially normal at 346117. No significant electrolyte abnormalities warranting intervention. The patient is noted to be with a serum hCG of 850 08/02/25 22:54 08/02/25 22:54 Labs: Lab Results 08/02/25 08/02/25 08/03/25 Range/Units 22:51 22:54 01:22 WBC 12.8 H (4.8-10.8) X10*3/uL RBC 4.76 (4.20-5.50) X10*6/uL Hgb 12.8 (12.0-16.0) g/dl Hct 38.4 (37.0-47.0) % MCV 80.7 (80.0-98.0) fL MCH 26.9 L (27.0-33.0) pg MCHC 33.3 (31.0-35.0) g/dl RDW 13.1 (11.0-16.0) % Plt Count 401 H (160-400) X10*3/uL MPV 9.0 L (9.4-12.3) fL Immature Gran % (Auto) 0.3 (0.0-0.4) % Neut % (Auto) 70.1 (45-73) % Lymph % (Auto) 21.3 (20-40) % Campbell % (Auto) 6.7 (2-11) % Eos % (Auto) 1.1 (0-4) % Baso % (Auto) 0.5 (0-2) % Lymph # (Auto) 2.7 (1.2-4.9) X10*3/uL Campbell # (Auto) 0.9 (0.1-1.2) X10*3/uL Eos # (Auto) 0.1 (0.0-0.4) X10*3/uL Baso # (Auto) 0.1 (0.0-0.2) X10*3/uL Abs Immat Gran (auto) 0.04 H (0.00-0.03) X10*3/uL Absolute Neuts (auto) 9.0 H (2.0-8.3) x10*3/uL Absolute Nucleated RBC 0.000 (0.0-0.012) X10*3/uL Nucleated RBC % (auto) 0.0 (0.0-0.2) /100WBC Sodium 140 (135-145) mmol/L Potassium 3.5 (3.3-5.1) mmol/L Chloride 108 (96-108) mmol/L Carbon Dioxide 24 (22-29) mmol/L Anion Gap 12 (12-20) BUN 8 L (9-16) mg/dL Creatinine 0.57 (0.5-1.4) mg/dL Estim Creat Clear Calc 195.1 Estimated GFR > 60 Random Glucose 107 (60-115) mg/dL Calcium 9.3 (8.4-10.2) mg/dL Total Bilirubin 0.3 (0.0-1.0) mg/dL AST 19 (5-31) U/L ALT 23 (0-31) U/L Alkaline Phosphatase 102 (39-117) U/L Total Protein 7.6 (6.5-8.0) g/dL Albumin 4.5 (3.5-5.0) g/dL Beta HCG, Quant 850 mIU/mL Urine Color Yellow Urine Appearance Clear Urine pH 5.5 (5.0-9.0) Ur Specific [place] >= 1.030 H (1.005-1.025) Urine Protein Negative (Neg-Trace) mg/dL Urine Glucose (UA) Negative (Negative) mg/dL Urine Ketones Negative (Negative) mg/dL Urine Blood Negative (Negative) Urine Nitrite Negative (Negative) Ur Leukocyte Esterase Negative (Negative) Chlam trachomat DNA PCR NOT DETECTED (Not Detect.) N.gonorrhoeae DNA (PCR) NOT DETECTED (Not Detect.) T. vaginalis (PCR) NOT DETECTED (Not Detect) Bact vaginosis (PCR) POSITIVE A (Negative) C. krusei/glabrata (PCR) NOT DETECTED (Not Detect) Milly group (PCR) NOT DETECTED (Not Detect) Blood Type 08/03/25 Range/Units 06:40 WBC (4.8-10.8) X10*3/uL RBC (4.20-5.50) X10*6/uL Hgb (12.0-16.0) g/dl Hct (37.0-47.0) % MCV (80.0-98.0) fL MCH (27.0-33.0) pg MCHC (31.0-35.0) g/dl RDW (11.0-16.0) % Plt Count (160-400) X10*3/uL MPV (9.4-12.3) fL Immature Gran % (Auto) (0.0-0.4) % Neut % (Auto) (45-73) % Lymph % (Auto) (20-40) % Campbell % (Auto) (2-11) % Eos % (Auto) (0-4) % Baso % (Auto) (0-2) % Lymph # (Auto) (1.2-4.9) X10*3/uL [place] # (Auto) (0.1-1.2) X10*3/uL Eos # (Auto) (0.0-0.4) X10*3/uL Baso # (Auto) (0.0-0.2) X10*3/uL Abs Immat Gran (auto) (0.00-0.03) X10*3/uL Absolute Neuts (auto) (2.0-8.3) x10*3/uL Absolute Nucleated RBC (0.0-0.012) X10*3/uL Nucleated RBC % (auto) (0.0-0.2) /100WBC Sodium (135-145) mmol/L Potassium (3.3-5.1) mmol/L Chloride (96-108) mmol/L Carbon Dioxide (22-29) mmol/L Anion Gap (12-20) BUN (9-16) mg/dL Creatinine (0.5-1.4) mg/dL Estim Creat Clear Calc Estimated GFR Random Glucose (60-115) mg/dL Calcium (8.4-10.2) mg/dL Total Bilirubin (0.0-1.0) mg/dL AST (5-31) U/L ALT (0-31) U/L Alkaline Phosphatase (39-117) U/L Total Protein (6.5-8.0) g/dL Albumin (3.5-5.0) g/dL Beta HCG, Quant 677 mIU/mL Urine Color Urine Appearance Urine pH (5.0-9.0) Ur Specific [place] (1.005-1.025) Urine Protein (Neg-Trace) mg/dL Urine Glucose (UA) (Negative) mg/dL Urine Ketones (Negative) mg/dL Urine Blood (Negative) Urine Nitrite (Negative) Ur Leukocyte Esterase (Negative) Chlam trachomat DNA PCR (Not Detect.) N.gonorrhoeae DNA (PCR) (Not Detect.) T. vaginalis (PCR) (Not Detect) Bact vaginosis (PCR) (Negative) C. krusei/glabrata (PCR) (Not Detect) Milly group (PCR) (Not Detect) Blood Type O Positive Radiology Impression Discussion of test interpretation with radiology: I have reviewed the radiologist's reading. Radiologist Impression: Findings: No intrauterine or ectopic gestation. Small amount of endocervical fluid. Likely physiologic. Physiologic amount of free fluid in the pelvis. Small nabothian cysts. Right ovary 3.3 x 4 x 2.3 cm. Left ovary 1.9 x 3.8 x 2.1 cm. Normal color Doppler with arterial/venous spectral tracing of both ovaries. IMPRESSION: 1. No intrauterine or ectopic . Recommend continued beta HCG level follow-up with ultrasound as needed. 2. No evidence of ovarian torsion. This document has been electronically signed by: Desiree Woo MD on 08/03/2025 03:08:25 Discharge Plan Discharge Clinical Impression: Threatened miscarriage Patient Disposition: Home, Self-Care Additional Instructions: Your testing in the emergency room today suggest that you were probably having a miscarriage. In order to confirm that this is a miscarriage and not an ectopic it would be good to returned to the emergency room on Wednesday morning for a repeat blood test of your beta hCG level. Therefore we recommend that you return to the emergency room on Wednesday for this additional test. Otherwise you may use ibuprofen and acetaminophen as needed for discomfort. Please plan on following up with your regular provider at the [facility] next week. Call the office today for a follow up appointment. However if at any point you have worsening pain or bleeding or fever return directly to the emergency room for additional evaluation. Prescriptions: New acetaminophen 500 mg capsule 1,000 mg PO Q8H PRN (Reason: fever or pain) Qty: 14 0RF ibuprofen 400 mg tablet 400 mg PO Q6H PRN (Reason: pain) Qty: 14 0RF metronidazole 500 mg tablet 500 mg PO BID 7 Days Qty: 14 0RF No Action cholecalciferol (vitamin D3) 25 mcg (1,000 unit) capsule 25 mcg PO DAILY Qty: 30 1RF senna 8.6 mg capsule 8.6 mg PO BEDTIME PRN (Reason: constipation) Qty: 30 1RF Referrals: Charmaine Kauffman PA-C [Primary Care Provider, Internal Medicine] Stand Alone Forms: Work/School Release Interventions: ED Discharge Assessment Last Done: 08/03/25 08:09 Discharge Date/Time: 08/03/25 08:09 Print Language: Kosovan
[2025-08-03 02:43] VITALS: BP 123/86; PULSE 98; RESP 18; O2SAT 100
[2025-08-03 03:06] VITALS: BP 128/84; PULSE 108; RESP 18; O2SAT 96
[2025-08-03 05:28] VITALS: BP 120/74; PULSE 100; RESP 22; TEMP 37; O2SAT 98
--- NOTE | 2025-08-03 07:34 | PM.GYNCN ---
LIBRARY DIRECTOR - CN: HPI Data of Consult Consult date: 08/03/25 Primary Care Provider: Charmaine Kauffman PA-C Consult Narrative Narrative: I was consulted on Adele Hodge who is a 24 year old female 1 para 0 presented to emergency room complaining of pelvic pain and vaginal bleeding. Pelvic and vaginal bleeding started 5 days ago and got worse prior to presentation no other associated symptoms. No fever or chills no vaginal discharge LMP on July 08 and lasted about 2-1/2 weeks, history of irregular menstrual cycles. She does report that her menstrual cycle is frequently irregular as it was only 1 day long in June She states that she did have some pelvic cramping and vaginal bleeding that started on Wednesday and persistent until today. In the emergency room the following workup was done: H&H was 12.8/38.4 Blood type O positive HCG at around 23:00 was 850 repeated in 640 a.m. dropped to 677 Bleeding and pain has really fold in a.m. Pelvic ultrasound showed the following: IMPRESSION: 1. No intrauterine or ectopic . Recommend continued beta HCG level follow-up with ultrasound as needed. 2. No evidence of ovarian torsion cc:: CC: OB [facility] Past Medical History Medical History (Updated 08/03/25 @ 07:38 by Buddy Yang MD) Obesity Generalized anxiety disorder Family History Family History Mother Hypertension Leukemia Maternal Grandmother Stroke Surgical History Surgical History No pertinent past surgical history Social History Social History (Updated 04/04/25 @ 11:23 by Carla Fregoso CMA) Housing: Apartment Alcohol intake: current Alcohol intake frequency: holidays/special occasions only Patient Tobacco Use Status: Former Tobacco user Tobacco use type: Cigarette e-Cigarette/Vaping Use: Never Used Second Hand Smoke Exposure: No Advance Directives: No service: No Current occupational status: employed Current occupational exposures/hazards: No Cognitive needs: No Hearing needs: No Vision needs: Yes Meds Allergies Allergy/AdvReac Type Severity Reaction Status Date / Time No Known Allergies Allergy Verified 08/02/25 20:38 LIBRARY DIRECTOR Physical Exam Vitals Vital signs: Temp Pulse Resp BP Pulse Ox O2 Del Method 98.6 F 100 22 H 120/74 98 Room Air 08/03/25 05:28 08/03/25 05:28 08/03/25 05:28 08/03/25 05:28 08/03/25 05:28 08/03/25 05:28 BMI result Body Mass Index 43.8 Additional Comments: Reported by Cesar tripathi PA in the emergency room: Benign abdomen Pelvic pain in the blood per vagina no cervical motion tenderness no uterine or adnexal tenderness LIBRARY DIRECTOR - Results Labs 08/02/25 22:54 08/02/25 22:54 Labs: Short CBC 08/02/25 Range/Units 22:54 WBC 12.8 H (4.8-10.8) X10*3/uL Hgb 12.8 (12.0-16.0) g/dl Hct 38.4 (37.0-47.0) % Plt Count 401 H (160-400) X10*3/uL BMP 08/02/25 22:54 Sodium 140 Potassium 3.5 Chloride 108 Carbon Dioxide 24 BUN 8 L Creatinine 0.57 Calcium 9.3 Liver Function 08/02/25 Range/Units 22:54 Total Bilirubin 0.3 (0.0-1.0) mg/dL AST 19 (5-31) U/L ALT 23 (0-31) U/L Alkaline Phosphatase 102 (39-117) U/L Albumin 4.5 (3.5-5.0) g/dL Urine 08/02/25 Range/Units 22:51 Urine Color Yellow Urine Appearance Clear Urine pH 5.5 (5.0-9.0) Ur Specific [place] >= 1.030 H (1.005-1.025) Urine Protein Negative (Neg-Trace) mg/dL Urine Glucose (UA) Negative (Negative) mg/dL Assessment and Plan (1) First trimester bleeding: Status: Acute Differential diagnosis includes SAB, ectopic or any early intrauterine Recommend discharge home to come back to the emergency room in 48 hours for re-evaluation repeat hCG and possible ultrasound Ectopic/SAB warnings to be given to patient. Instructions to be given to the patient to come back to emergency room in case of vaginal bleeding , persistent or heavier and all pelvic pain prior to 48 hours I spent a total of 20 minutes reviewing the chart, communicating to the emergency room providers and documenting in the medical record.
[2025-08-03 07:48] VITALS: BP 122/74; PULSE 95; RESP 16; TEMP 36.5; O2SAT 98
--- NOTE | 2025-08-03 08:05 | PC.NURSE ---
pt up for discharge - medicated prior to d/c. pt requesting US result photos - supervisor electronics testing from [facility] contacted at this time - pending response. 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 plan of care ongoing.
[2025-08-03 08:09] VITALS: BP 122/74; PULSE 95; RESP 16; TEMP 36.5; O2SAT 98
[2025-08-03 08:12] LABS: Bacterial Vaginosis PCR POSITIVE (Negative); Candida Group PCR NOT DETECTED (Not Detect); Candida glab krusei PCR NOT DETECTED (Not Detect); Trichomonas vaginalis PCR NOT DETECTED (Not Detect)
[2025-08-03 09:02] LABS: CT PCR NOT DETECTED (Not Detect.); NG PCR NOT DETECTED (Not Detect.)
== END 2025-08-03 08:09 | disposition home or self-care (01) ==
PROVIDERS: Emergency Medicine; Physician Assistant; Emergency Provider Emergency Medicine
DX: O20.0 Threatened abortion (principal); Z3A.01 Less than 8 weeks gestation of pregnancy; O20.9 Hemorrhage in early pregnancy, unspecified; R10.22 Pelvic and perineal pain left side; Z87.891 Personal history of nicotine dependence
CPT/HCPCS: 36415; 76801; 80053; 81003; 81515; 84702; 85025; 86900; 86901; 87491; 87591; 93975; 96372; 99285; J1885

== ENCOUNTER → 2025-08-02 23:45 | Outpatient (BNV) | payer OTHER, SELFPAY | PROVIDERS: Emergency Provider Emergency Medicine; Visit Provider Obstetrics & Gynecology | DX: O20.9 Hemorrhage in early pregnancy, unspecified (principal) | CPT/HCPCS: 99283 ==

== ENCOUNTER → 2025-08-03 01:13 | Outpatient (BNV) | payer OTHER, SELFPAY | PROVIDERS: Emergency Provider Emergency Medicine; Visit Provider Radiology Diagnostic Radiology | DX: R10.21 Pelvic and perineal pain right side (principal) | CPT/HCPCS: 76801; 76817 ==